=== PATIENT | female | born 1955 | race Caucasian/White ===

== ENCOUNTER → 2016-12-01 | Outpatient (CLI) | payer OTHER ==
--- NOTE | 2016-12-01 15:18 | CONS ---
DATE OF SERVICE: 12/03/2016 A 61-year-old lady who has been evaluated in the Sleep Center for possible obstructive sleep apnea-hypopnea syndrome. HISTORY OF PRESENT ILLNESS/SLEEP-WAKE EVALUATION: Patient usual sleep schedule from around 10 p.m. until 8 - 9 a.m. Sometimes she has problems with falling asleep with a known TV in bedroom. She sleeps with her . She has snoring and wakes up with nocturia 2 to 3 times during the night. In the morning she wakes up tired with some episodes of anxiety, debility, [place] Sleepiness scale is 6 but she may take naps rarely in afternoon. No history of hypnagogic hallucinations, sleep paralysis or cataplexy. PAST MEDICAL HISTORY: Positive for multiple sclerosis, diabetes mellitus, hypothyroidism, hyperlipidemia, allergy, back problems. PAST SURGICAL HISTORY: Tonsillectomy, D&C, left foot surgery, cholecystectomy. SOCIAL HISTORY: Positive for smoking 1 to 1-1/2 packs a day for about 16 years , quit 30 years ago. Alcohol consumption none at the present time. MEDICATIONS: Tysbri, Lyrica, Adderall, Effexor, metformin, Actos, ( ), Lantus, Trulicity, Synthroid, atorvastatin, Aldactone, potassium supplement, Percocet, vitamins, Zyrtec, Claritin, shots for allergy, vitamin D3, Epi-pen. REVIEW OF SYSTEMS: Awakenings from sleep, sometimes tiredness during the day, back pain, numbness in the left foot. FAMILY HISTORY: Hypertension, asthma, diabetes, thyroid problems, restless legs. During physical exam, a 61-year-old lady without distress. BP 139/71, HR 98, RR 16, height 5, 5-1/2, weight 218, BMI 35.7. Neck 15 inches in circumference, temperature 98.1, oxygen saturation at room air 99%. OROPHARYNX: Low position of soft palate, retrognathic 3 mm, possible nasal septum deviation. ABDOMEN: Obese. Loosing sensation on the bottom of left foot. NECK: Supple. No JVD. Thyroid is not palpable. LUNGS: Clear to percussion and to auscultation. Good air exchange. No wheezing or rhonchi. HEART: S1, S2 regular. Bowel sounds are present. No organomegaly appreciated. EXTREMITIES: No clubbing or cyanosis. CUSTOMER PROFESSIONAL: Awake, alert and oriented x3. Cranial nerves 2 to 7 intact. There is no fasciculation or atrophy noted. No focal deficits observed. IMPRESSION: 1. Snoring, multiple awakenings from sleep with nocturia, low position of soft palate. 2. Possible obstructive sleep apnea-hypopnea syndrome. 3. Obesity, body mass index 35.7. 4. Multiple sclerosis. 5. Diabetes mellitus. 6. Hypothyroidism. 7. Hyperlipidemia. 8. Allergy. 9. Back pain. 10. Tonsillectomy. 11. Status post D&C. 12. Status post left foot surgery. 13. Status post cholecystectomy. 14. Possible nasal septum deviation. 15. History of possible depression. PLAN: ( ) Sincerely, Humberto Luo MD PhD, FAASM Diplomate of [place] Board [employer] Medicine, Sleep Medicine Board by [place] Board [employer] Specialities [place] Board of Internal Medicine Stone Derrickman And Rigger of [facility] [place] [facility]
== END | disposition home or self-care (01) ==
LOC: SLEEP 13:17
PROVIDERS: ATTEND Internal Medicine
DX: G35 Multiple sclerosis (principal); R06.83 Snoring; E66.9 Obesity, unspecified; E78.5 Hyperlipidemia, unspecified; E11.9 Type 2 diabetes mellitus without complications; E03.9 Hypothyroidism, unspecified; T78.40XA Allergy, unspecified, initial encounter; M54.9 Dorsalgia, unspecified; Z68.35 Body mass index [BMI] 35.0-35.9, adult
CPT/HCPCS: 99211

== ENCOUNTER → 2017-01-19 | Outpatient (CLI) | payer OTHER ==
--- NOTE | 2017-01-20 08:58 | PN ---
PROGRESS NOTE Date of Service: DATE OF SERVICE: 01/19/17 61-year-old lady has been followed in the sleep center to discuss results of polysomnogram. I discussed results of diagnostic sleep study with patient in details. No significant abnormalities of respiration has been documented. Normal oxygenation during the sleep. Sleep architecture showed absence of delta sleep and absence of REM sleep. EMG showed extremely severe periodic limb movements, 143 times per hour with 4.3 micro arousals per hour and I discussed with the patient the possibility to use a dopamine agonist for treatment of periodic limb movements. [place] sleep scale today is 8. MEDICATIONS: 1. Lyrica. 2. Adderall. 3. Effexor. 4. Metformin. 5. Actos. 6. Farxiga. 7. Lantus. 8. . 9. Synthroid. 10.Atorvastatin. 11.Aldactazide. 12.Percocet. 13.Multivitamin. 14.Zyrtec. 15.Allergy shots. 16.Vitamin D3 supplement. PHYSICAL EXAM: Patient in no distress. Her BP 150/68, HR 96, RR 16, temp 98.1. Oxygen saturation on room air 99%. Oropharynx moderately low position of soft palate. NECK: Supple. No JVD. Thyroid is not palpable. LUNGS: Clear to auscultation and percussion. Good air exchange. No wheezing or rhonchi. HEART: S1, S2 regular. No murmurs, gallops or rubs. ABDOMEN: Obese. Soft, nontender. Bowel sounds are preset. No organomegaly appreciated. EXTREMITIES: Numbness of the left foot, 1+ ankle edema. VETERINARIAN LABORATORY ANIMAL CARE: Awake, alert and oriented times three. Cranial nerves 2 to 7 intact. There is no fasciculation or atrophy noted. No focal deficits observed. IMPRESSION: 1. No significant respiratory abnormalities have been documented during the sleep. 2. Severe periodic limb movements have been documented during the sleep study. 3. History of multiple sclerosis. 4. Diabetes mellitus. 5. Hyperlipidemia. 6. Status post left foot surgery. 7. Hypothyroidism. 8. Allergy. 9. Status post tonsillectomy. 10.Status post cholecystectomy. 11.History of possible depression. PLAN: 1. I will start the patient on treatment with Mirapex with the smallest dose 0.125 mg 1-2 tablets at bedtime. 2. Losing weight. 3. Sleep hygiene with regular time in bed for at least eight hours. 4. No driving if feels any sleepiness. 5. Please check iron profile including ferritin level. Low level of iron may increase risk for periodic limb movements. Thank you very much for allowing me to participate in management of your patient. Sincerely, Humberto Luo MD, PhD, FAASM Diplomat of [place] Board [employer] Medicine. Sleep Medicine Board by [place] [employer] Special[employer] [place] [employer] Medicine Sheet Metal Journeyman of [facility] [place] MMODL / IJN: [id number] /
== END | disposition home or self-care (01) ==
LOC: SLEEP 13:04
PROVIDERS: ATTEND Internal Medicine
DX: G47.61 Periodic limb movement disorder (principal); E11.9 Type 2 diabetes mellitus without complications; E78.5 Hyperlipidemia, unspecified; E03.9 Hypothyroidism, unspecified; T78.40XA Allergy, unspecified, initial encounter; Z98.890 Other specified postprocedural states; Z90.49 Acquired absence of other specified parts of digestive tract; Z90.89 Acquired absence of other organs; Z87.39 Personal history of other diseases of the musculoskeletal system and connective tissue; Z79.899 Other long term (current) drug therapy; Z79.4 Long term (current) use of insulin; Z79.891 Long term (current) use of opiate analgesic

== ENCOUNTER → 2017-06-13 | Outpatient (CLI) | payer OTHER ==
--- NOTE | 2017-06-13 14:18 | US ---
EXAMINATION TYPE: US transvaginal DATE OF EXAM: 06/13/2017 COMPARISON: US CLINICAL HISTORY: Timothy ovarian cyst, N83.201,. TECHNIQUE: Transvaginal (TV) Date of LMP: postmenopausal EXAM MEASUREMENTS: Uterus: 4.0 x 2.2 x 3.7 cm Endometrial Stripe: 0.5 cm Right Ovary: 1.9 x 1.2 x 1.0 cm Left Ovary: 1.4 x 1.1 x 1.2 cm 1. Uterus: Anteverted wnl 2. Endometrium: wnl 3. Right Ovary: wnl 4. Left Ovary: wnl 5. Bilateral Adnexa: wnl 6. Posterior cul-de-sac: no free fluid IMPRESSION: No significant abnormality seen.
== END | disposition home or self-care (01) ==
LOC: RADUSWWP 13:42
PROVIDERS: ATTEND Obstetrics & Gynecology
DX: N83.201 Unspecified ovarian cyst, right side (principal); N83.202 Unspecified ovarian cyst, left side
CPT/HCPCS: 36415; 76830; 86304

== ENCOUNTER → 2017-07-03 | Outpatient (CLI) | payer OTHER ==
--- NOTE | 2017-07-03 18:08 | BD ---
EXAMINATION TYPE: MG DEXA axial skeleton. DATE OF EXAM: 07/03/2017 COMPARISON: 04/03/2014 CLINICAL HISTORY: 62-year-old female screening for osteoporosis Height: 65.5 IN Weight: 222 LBS FRAX RISK QUESTIONS: Alcohol (3 or more units per day): NO Family History (Parent hip fracture): NO Glucocorticoids (More than 3mos): NO (Ex: prednisone, prednisolone, methylprednisolone, dexamethasone, and hydrocortisone). History of Fracture in Adulthood: NO Secondary Osteoporosis: 1. Type 1 Diabetes: NO 2. Hyperthyroidism: NO 3. Menopause before 45: NO 4. Malnutrition: NO 5. Chronic liver disease: NO Rheumatoid Arthritis: NO Current Tobacco Use: NO RISK FACTORS HISTORY OF: Active: YES Postmenopausal woman: AGE 45 MEDICATIONS: Thyroid Medications: YES Which medication: Synthroid How Lon+ YEARS Additional Medications: VIT D, SYNTHROID,TYSABRI (INTERPHOREN), LYRICA, ADDERAL ER, EFFEXOR XR, METFO RMIN, ACTOS, FARXIGA, LANTUS, TRULICITY, ATORVASTATIN, ALDACTAZIDE, POTASSIUM CHLORIDE, MIRAPEX, PERC OCET, FISH OIL, MULTI VIT, ZYRTEC, CLARITIN, EXAM MEASUREMENTS: Bone mineral densitometry was performed using the [employer] System. Bone mineral density as measured about the Lumbar spine is: ----- L1-L4(G/cm2): 1.258 T Score Values are as follows: ----- L2: 0.5 ----- L3: 1.3 ----- L4: 0.2 ----- L1-L4: 0.7 Bone mineral density has: Decreased -8.1% since study of: 04/03/2014 Bone mineral density about the R hip (g/cm2): 1.128 Bone mineral density about the L hip (g/cm2): 1.043 T Score values are as follows: -----R Neck: 0.6 -----L Neck: 0.0 -----R Total: 0.3 -----L Total: 0.6 Bone mineral density has: Decreased -6.3% since study of: 04/03/2014 IMPRESSION: Normal (Values between +1 and -1 indicate normal bone mass). Consider repeating this study in 5 year s or sooner if there is some new clinical indication. NOTE: T-SCORE=SD OF THE YOUNG ADULT MEAN.
--- NOTE | 2017-07-04 11:39 | MM ---
Reason for exam: screening (asymptomatic). Last mammogram was performed 1 year and 3 months ago. History: Patient is postmenopausal and had first child at age 35. Physical Findings: A clinical breast exam by your physician is recommended on an annual basis and results should be correlated with mammographic findings. MG Screening Mammo w CAD Bilateral CC and MLO view(s) were taken. Prior study comparison: April 07, 2016, bilateral MG screening mammo w CAD. March 24, 2015, bilateral MG screening mammo w CAD. There are scattered fibroglandular densities. Stable benign calcifications. There is no discrete abnormality. No significant changes when compared with prior studies. ASSESSMENT: Benign, BI-RAD 2 RECOMMENDATION: Routine screening mammogram of both breasts in 1 year.
== END | disposition home or self-care (01) ==
LOC: RADMAMWWP 13:50
PROVIDERS: ATTEND Obstetrics & Gynecology
DX: Z12.31 Encounter for screening mammogram for malignant neoplasm of breast (principal); Z13.820 Encounter for screening for osteoporosis
CPT/HCPCS: 77067; 77080

== ENCOUNTER → 2017-07-20 | Outpatient (CLI) | payer OTHER ==
--- NOTE | 2017-07-20 14:58 | SFUN ---
SLEEP STUDY FOLLOW UP NOTE DATE OF SERVICE: 07/20/2017 A 62-year-old lady who has been followed in the Sleep Center for treatment of CVA periodic limb movements. The patient is on treatment for periodic limb movements since December of 2016. At that time, she was started on treatment with Mirapex and presently she is taking 2 tablets of Mirapex 0.125 mg at bedtime. With this treatment, patient feels improvements in terms of movements at night and she sleeps better although she still sometimes wakes up from sleep. She underwent instillation of her stem cells to the back in the level of L3-L4, and that also happened in January 02, 2017 and presently she feels improvements with her pain in the back after that procedure. She still continued to have numbness in her left foot. [place] Sleepiness scale today is 8. MEDICATIONS: Tysbri, Lyrica, Adderall, Effexor, metformin, , Farxiga, Lantus, Synthroid, Atorvastatin, , potassium supplement, Mirapex, Trulicity, Percocet, Zyrtec, Claritin, vitamin D3. PHYSICAL EXAM: Patient in no distress. BP 143/70, HR 94, RR 16, height 5, 5, weight 224, BMI 37.2, temperature 97.8, oxygen saturation at room air 100%. OROPHARYNX: Moderately low to normal position of soft palate. ABDOMEN: Slightly obese. Some changes of sensation in her left foot. Patient has some difficulties to walk secondary to back pain. Neck Supple, no JVD. Thyroid is not palpable. LUNGS Clear to percussion and to auscultation. Good air exchange. No wheezing or rhonchi. HEART S1, S2 regular. No murmurs, gallops, or rubs. PATENT DRAFTER Awake, alert, and oriented X3. Cranial nerves 2 to 7 intact. There is no fasciculation or atrophy. noted. No focal deficits observed. IMPRESSION: 1. Severe periodic limb movements, clinically improved on treatment with Mirapex with the dose of 2.5 mg at bedtime. 2. History of multiple sclerosis. 3. Diabetes mellitus. 4. Back problems, status post stem cells insertion to the disc area on the level L3- L4, feels some improvements. 5. Status post left foot surgery. 6. Hypothyroidism. 7. Allergy. 8. Status post tonsillectomy. 9. Status post cholecystectomy. 10.History of possible depression. PLAN: 1. Continue treatment with Mirapex at bedtime with the same dose. 2. Losing weight. 3. Sleep hygiene with regular time in bed for at least 8 hours. 4. No driving if feeling sleepiness. 5. Prescription to continue treatment with Mirapex. Thank you very much for allowing me to participate in the management of your patient. Sincerely, Humberto Luo MD, PhD, FAASM Diplomat of [place] Board [employer] Medical Specialties [place] Board of Internal Medicine Product Support Consultant of [facility] [place] MMODL / IJN: [id number] /
== END | disposition home or self-care (01) ==
LOC: SLEEP 13:15
PROVIDERS: ATTEND Internal Medicine
DX: G47.61 Periodic limb movement disorder (principal); E11.9 Type 2 diabetes mellitus without complications; E03.9 Hypothyroidism, unspecified; M79.89 Other specified soft tissue disorders; T78.40XA Allergy, unspecified, initial encounter; Z90.89 Acquired absence of other organs; Z90.49 Acquired absence of other specified parts of digestive tract; Z86.69 Personal history of other diseases of the nervous system and sense organs; Z94.84 Stem cells transplant status; Z98.890 Other specified postprocedural states; Z79.899 Other long term (current) drug therapy; Z79.84 Long term (current) use of oral hypoglycemic drugs; Z79.891 Long term (current) use of opiate analgesic

== ENCOUNTER → 2017-09-14 | Outpatient (CLI) | payer OTHER ==
[2017-09-14 11:06] LABS: ALT 51 U/L (9-52); AST 39 U/L (14-36); Albumin 4.3 g/dL (3.5-5.0); Alkaline Phosphatase 102 U/L (38-126); Anion Gap 13 mmol/L; Blood Urea Nitrogen 17 mg/dL (7-17); Calcium 9.5 mg/dL (8.4-10.2); Carbon Dioxide 31 mmol/L (22-30); Chloride 101 mmol/L (98-107); Cholesterol 103 mg/dL (<200); Glucose 195 mg/dL (74-99); HDL Cholesterol 42 mg/dL (40-60); LDL Cholesterol,Calculated 14 mg/dL (0-99); Sodium 145 mmol/L (137-145); Total Bilirubin 1.1 mg/dL (0.2-1.3); Total Protein 6.5 g/dL (6.3-8.2); Triglycerides 234 mg/dL (<150)
[2017-09-14 18:51] LABS: Hemoglobin A1C 9.3 % (4.0-6.0)
== END | disposition home or self-care (01) ==
LOC: LABWHC1 10:28
PROVIDERS: ATTEND Internal Medicine
DX: E11.9 Type 2 diabetes mellitus without complications (principal); E78.5 Hyperlipidemia, unspecified; E55.9 Vitamin D deficiency, unspecified
CPT/HCPCS: 36415; 80053; 80061; 82043; 82306; 82570; 83036

== ENCOUNTER → 2018-02-15 | Outpatient (CLI) | payer OTHER ==
--- NOTE | 2018-02-15 16:28 | PN ---
PROGRESS NOTE DATE OF SERVICE: 02/15/2018 62-year-old lady has been followed in Sleep Center for treatment of severe periodic limb movements and awakenings from the night. Patient had a polysomnogram done about 1 year ago, which showed no any abnormal respiratory events and severe periodic limb movements have been documented. The sleep efficiency was decreased to 59.1%. No REM sleep was documented at that time, which actually also could be the reason for underestimation of obstructive sleep apnea- hypopnea syndrome. Presently, patient is on treatment with Mirapex 0.125 mg 2 tablets at bedtime. Sometimes she still has her leg movements according to her , but that is not very clear information, but the patient continued to wake up from sleep several times. Usually she goes to bed around 10 and wakes up around midnight, 2, 4 and 6 am. In the morning finally, she gets out of bed around 8 or 10 and some days she may stay until around noon. Other medications are the same, and include Lyrica, Adderall XR, Effexor XR, metformin, , Farxiga, Lantos, Trulicity, Synthroid, atorvastatin, Aldactazide, potassium supplement, Percocet, Zyrtec, Claritin, allergy shots, vitamin D3 supplements. PHYSICAL EXAM: Patient in no distress, BP 135/65, HR 89, RR 16, height 5 feet 5 and one half inches and weight 218.6, body mass index 35.7, temperature 98.6, oxygen saturation on room air 99%. Oropharynx moderately low position of soft palate. Abdomen slightly obese. Neck: Supple, no JVD. Thyroid is not palpable. LUNGS Clear to percussion and to auscultation. Good air exchange. No wheezing or rhonchi. HEART: S1, S2 regular. No murmurs, gallops, or rubs. ABDOMEN: Obese. Soft and nontender. Bowel sounds are present. No organomegaly appreciated. EXTREMITIES No clubbing or cyanosis. BRAND ENGINEER Awake, alert, and oriented X3. Cranial nerves 2 to 7 intact. There is no fasciculation or atrophy. noted. No focal deficits observed. IMPRESSION: 1. Severe periodic limb movements, 143 per hour with 4.3 micromoles per hour by results of sleep study 1 year ago. 2. Multiple awakenings from sleep related to leg movements, also possibly to insomnia. 3. Diabetes mellitus. 4. Back problems. 5. History of multiple sclerosis. 6. Hypothyroidism. 7. Allergy. 8. Status post tonsillectomy. PLAN: 1. I discussed with the patient psychological techniques for treatment of possible insomnia including stimulus control, paradoxical intention, sleep restriction therapy. 2. The patient will decrease the amount of time in bed presently from 11:00 p.m. to 7 am. 3. She will continue to use her dopamine agonists for periodic limb movements. If necessary, dose will be increased. 4. Precautions related to driving. No driving if feeling any sleepiness. 5. Preferable position during the sleep on the side. Thank you very much for allowing me to participate in the management of your patient. MMODL / IJN: [id number] /
== END | disposition home or self-care (01) ==
LOC: SLEEP 14:14
PROVIDERS: ATTEND Internal Medicine
DX: G47.61 Periodic limb movement disorder (principal); E11.9 Type 2 diabetes mellitus without complications; G35 Multiple sclerosis; E03.9 Hypothyroidism, unspecified; T78.40XA Allergy, unspecified, initial encounter; M53.9 Dorsopathy, unspecified; E66.9 Obesity, unspecified; Z68.35 Body mass index [BMI] 35.0-35.9, adult; Z79.899 Other long term (current) drug therapy; Z79.84 Long term (current) use of oral hypoglycemic drugs; Z79.4 Long term (current) use of insulin; Z79.891 Long term (current) use of opiate analgesic; Z90.89 Acquired absence of other organs

== ENCOUNTER → 2018-07-20 | Outpatient (CLI) | payer OTHER | END | disposition home or self-care (01) | LOC: LABWHC1 12:04 | PROVIDERS: ATTEND Obstetrics & Gynecology | DX: N83.209 Unspecified ovarian cyst, unspecified side (principal) | CPT/HCPCS: 36415; 86304 ==

== ENCOUNTER → 2018-07-20 | Outpatient (CLI) | payer OTHER ==
--- NOTE | 2018-07-23 09:31 | MM ---
Reason for exam: screening (asymptomatic). Last mammogram was performed 1 year and 1 month ago. History: Patient is postmenopausal and had first child at age 35. Physical Findings: A clinical breast exam by your physician is recommended on an annual basis and results should be correlated with mammographic findings. MG Screening Mammo w CAD Bilateral CC and MLO view(s) were taken. Prior study comparison: July 03, 2017, bilateral MG screening mammo w CAD. April 07, 2016, bilateral MG screening mammo w CAD. There are scattered fibroglandular densities. Finding: There are typically benign round, diffuse/scattered calcifications in the right breast. No suspicious abnormality. No significant changes in finding since July 03, 2017 and April 07, 2016. ASSESSMENT: Benign, BI-RAD 2 RECOMMENDATION: Routine screening mammogram of both breasts in 1 year.
== END ==
LOC: RADMAMWWP 11:34
PROVIDERS: ATTEND Obstetrics & Gynecology
DX: Z12.31 Encounter for screening mammogram for malignant neoplasm of breast (principal)
CPT/HCPCS: 77067

== ENCOUNTER → 2018-08-10 | Outpatient (CLI) | payer OTHER ==
--- NOTE | 2018-08-10 14:36 | US ---
EXAMINATION TYPE: US transvaginal DATE OF EXAM: 08/10/2018 COMPARISON: US June 13, 2017 CLINICAL HISTORY: N83.0 Ovarian Cyst. Sister had ovarian CA TECHNIQUE: Transvaginal (TV). Transabdominal sonographic images of the pelvis were acquired. Date of LMP: age 45 EXAM MEASUREMENTS: Uterus: 3.7 x 2.9 x 2.1 cm Endometrial Stripe: 0.4 cm Right Ovary: 1.5 x 0.6 x 0.6 cm Left Ovary: 2.3 x 1.5 x 1.0 cm 1. Uterus: Anteverted 2. Endometrium: small cyst in upper endometrium = 0.4 x 0.3 x 0.3cm; endometrial thickness is wnl po st menopause 3. Right Ovary: wnl 4. Left Ovary: wnl 5. Bilateral Adnexa: wnl 6. Posterior cul-de-sac: wnl Small 3 mm thin-walled myometrial cyst felt present towards beginning of study. Both ovaries are seen and normal in size somewhat poorly visualized on images saved without concerning ovarian or adnexal mass. IMPRESSION: No suspicious ovarian or adnexal mass identified on images saved.
== END | disposition home or self-care (01) ==
LOC: RADUSWWP 13:39
PROVIDERS: ATTEND Obstetrics & Gynecology
DX: N83.209 Unspecified ovarian cyst, unspecified side (principal); Z80.41 Family history of malignant neoplasm of ovary
CPT/HCPCS: 76830

== ENCOUNTER → 2018-11-14 | Outpatient (CLI) | payer OTHER ==
--- NOTE | 2018-11-14 17:05 | PN ---
PROGRESS NOTE DATE OF SERVICE: 11/14/2018 This 63-year-old lady has been followed in Sleep Center for treatment of periodic limb movements in severe range. Patient continues to use Mirapex 0.125 mg 2 tablets at bedtime, and with this regimen she sleeps better and feels better during the day. If she does not take the medication, she has a significant amount of leg movements and she feels worse during the day. [place] Sleepiness Scale today is 2, which is normal. Medications at the present time are: 1. Tysbri. 2. Lyrica. 3. Adderall. 4. Effexor. 5. Metformin. 6. . 7. . 8. Lantus. 9. Trulicity. 10.Synthroid. 11.Atorvastatin. 12.Aldactazide. 13.Potassium supplement. 14.Mirapex. 15.Percocet. 16.Claritin. 17.Zyrtec. 18.Oxybutynin. 19.Vitamin D3 supplement. PHYSICAL EXAMINATION: GENERAL: A pleasant patient in no distress. VITAL SIGNS: BP is 136/75, HR about 96, RR 16, height 5 feet 5 inches, weight 209 pounds. Body mass index 34.7. Temperature 98.4, oxygen saturation at room air 97%. HEENT: PERRLA, EOMI. Evaluation of oropharynx showed tongue protrudes midline. Moderately low position of soft palate. NECK: Supple. No JVD. Thyroid is not palpable. LUNGS: Clear to percussion and to auscultation. Good air exchange. No wheezing or rhonchi. HEART: S1, S2 regular. No murmurs, gallops or rubs. ABDOMEN: Slightly obese. EXTREMITIES: No clubbing or cyanosis. FRUIT FARMER: Awake, alert, and oriented X3. Cranial nerves 2 to 7 intact. There is no fasciculation or atrophy. noted. No focal deficits observed. IMPRESSION: 1. Extremely severe periodic limb movements at 143 per hour with 4.3 microarousals per hour per results of previous sleep study. The patient is on treatment with Mirapex 0.125 mg 2 tablets at bedtime. With this regimen, no significant problems with periodic limb movements. 2. Diabetes mellitus. 3. History of back problems. 4. History of multiple sclerosis. 5. Hypothyroidism. 6. Allergies. 7. Status post tonsillectomy. PLAN: 1. Patient will continue to take Mirapex 0.125 mg 2 tablets at bedtime. 2. Sleep hygiene with regular time in bed for at least 8 hours. 3. Precautions related to driving. No driving if feeling any sleepiness. 4. Watching and losing weight. Thank you very much for allowing me to participate in the management of your patient. Sincerely, Humberto Luo MD, PhD, FAASM Diplomat of [place] Board [employer] Medical Specialties [place] Board of Internal Medicine Low Heel Builder of [facility] [place] MMODL / IJN: [id number] /
== END ==
LOC: SLEEP 14:57
PROVIDERS: ATTEND Internal Medicine
DX: G47.61 Periodic limb movement disorder (principal); E11.9 Type 2 diabetes mellitus without complications; G35 Multiple sclerosis; E03.9 Hypothyroidism, unspecified; R29.898 Other symptoms and signs involving the musculoskeletal system; Z88.8 Allergy status to other drugs, medicaments and biological substances; Z90.89 Acquired absence of other organs; Z79.899 Other long term (current) drug therapy; Z79.4 Long term (current) use of insulin

== ENCOUNTER → 2019-10-21 | Outpatient (CLI) | payer OTHER ==
--- NOTE | 2019-10-21 12:12 | US ---
EXAMINATION TYPE: US transvaginal DATE OF EXAM: 10/21/2019 COMPARISON: 08/10/2018 CLINICAL HISTORY: 64-year-old female N83.0 Ovarian cyst. TECHNIQUE: Transvaginal (TV). Findings: EXAM MEASUREMENTS: Uterus: 3.6 x 1.9 x 3.0 cm Endometrial Stripe: .3 cm Left Ovary: Obscured by bowel gas. Right Ovary: 1.5 x .7 x 1.1 cm 1. Uterus: Anteverted wnl 2. Endometrium: wnl 3. Left Ovary: Obscured by bowel gas. 4. Right Ovary: Hypoechoic cystic area measuring .6 x .5 x .7 cm. 5. Bilateral Adnexa: wnl 6. Posterior cul-de-sac: wnl IMPRESSION: Small 7 mm hypoechoic lesion within the right ovary, probable tiny debris filled or hemorrhagic cyst. A 6-8 week follow-up ultrasound can be considered to reassess. Not clearly seen on 08/10/2018. The le ft ovary is obscured and not assessed.
== END | disposition home or self-care (01) ==
LOC: RADUSWWP 11:14
PROVIDERS: ATTEND Obstetrics & Gynecology
DX: N83.8 Other noninflammatory disorders of ovary, fallopian tube and broad ligament (principal)
CPT/HCPCS: 36415; 76830; 86304

== ENCOUNTER → 2019-10-30 | Outpatient (CLI) | payer OTHER ==
--- NOTE | 2019-10-31 09:10 | MM ---
Reason for exam: screening (asymptomatic). Last mammogram was performed 1 year and 3 months ago. History: Patient is postmenopausal and had first child at age 35. Physical Findings: A clinical breast exam by your physician is recommended on an annual basis and results should be correlated with mammographic findings. MG 3D Screening Mammo W/Cad Bilateral CC, MLO, and XCCL view(s) were taken. Prior study comparison: July 20, 2018, bilateral MG screening mammo w CAD. July 03, 2017, bilateral MG screening mammo w CAD. There are scattered fibroglandular densities. Finding: There are typically benign diffuse/scattered calcifications in both breasts. No significant changes in finding since July 20, 2018 and July 03, 2017. ASSESSMENT: Benign, BI-RAD 2 RECOMMENDATION: Routine screening mammogram of both breasts in 1 year.
== END | disposition home or self-care (01) ==
LOC: RADMAMWWP 13:52
PROVIDERS: ATTEND Obstetrics & Gynecology
DX: Z12.31 Encounter for screening mammogram for malignant neoplasm of breast (principal)
CPT/HCPCS: 77063; 77067

== ENCOUNTER → 2020-12-25 | Outpatient (CLI) | payer MEDICARE ==
--- NOTE | 2020-12-26 05:39 | MR ---
EXAMINATION TYPE: MR lumbar spine wo con DATE OF EXAM: 12/25/2020 COMPARISON: None HISTORY: Low back pain Multiplanar multiecho imaging of the lumbar spine without contrast. Vertebra have fairly normal alignment. There is a very minimal anterior subluxation at L3-4 L4-5. The facet joints appear intact. The neural foramina are fairly well-maintained. There is no compression fracture. There is no lumbar paraspinal mass. I see no spinal stenosis. There is some impingement on the thecal sac on the right side at L2-3 that could be a small synovial cyst. Disc spaces are fairly normal. I see no focal bone destruction. IMPRESSION: Minimal degenerative subluxation at L2-3 and L3-4. No compression fracture. Possible small synovial c yst on the right facet joint of L2-3. No spinal stenosis. No lumbar disc herniation.
== END | disposition home or self-care (01) ==
LOC: RADMRIMAIN 09:13
PROVIDERS: ATTEND Orthopaedic Surgery
DX: M51.36 Other intervertebral disc degeneration, lumbar region (principal)
CPT/HCPCS: 72148

== ENCOUNTER → 2020-12-31 | Outpatient (CLI) | payer MEDICARE ==
--- NOTE | 2020-12-31 17:21 | XR ---
EXAMINATION TYPE: XR knee limited LT DATE OF EXAM: 12/31/2020 COMPARISON: NONE HISTORY: 65-year-old female M25.562 TECHNIQUE: 2 views FINDINGS: Tricompartmental degenerative spurring. Moderate knee joint effusion. No acute fracture, subluxation, or dislocation. IMPRESSION: 1. Moderate knee joint effusion. MRI can be considered if concern for internal derangement. No acute osseous abnormality seen. 2. Tricompartmental degenerative spurring. A weight-bearing view can better assess the degree of cart ilage and joint space narrowing.
== END | disposition home or self-care (01) ==
LOC: RADXRMAIN 15:42
PROVIDERS: ATTEND Family Medicine
DX: M17.12 Unilateral primary osteoarthritis, left knee (principal); M25.462 Effusion, left knee

== ENCOUNTER 2021-02-19 21:47 | Emergency (ER) | payer MEDICARE ==
[2021-02-19] MEDS ORDERED: SODIUM CHLORIDE 0.9% 1,000 ML IV STA (22:19)
[2021-02-19] MEDS ORDERED: IPRATROPIUM-ALBUTEROL 3 ML NEB INHALATION STA (22:20)
[2021-02-19] MEDS: DEXAMETHASONE SOD PHOSPHATE 10 MG/ML 1 ML VIAL IV STA (22:45)
[2021-02-19 22:48] LABS: Basophils # (A) 0.1 k/uL (0-0.2); Basophils % (A) 1 %; Eosinophils # (A) 0.2 k/uL (0-0.7); Eosinophils % (A) 2 %; HCT 38.8 % (34.0-46.0); HGB 13.6 gm/dL (11.4-16.0); Lymphocytes # (A) 2.7 k/uL (1.0-4.8); Lymphocytes % (A) 27 %; MCH 29.8 pg (25.0-35.0); MCHC 35.2 g/dL (31.0-37.0); MCV 84.9 fL (80.0-100.0); Mean Platelet Volume 7.6; Monocytes # (A) 0.4 k/uL (0-1.0); Monocytes % (A) 4 %; Neutrophils # (A) 6.6 k/uL (1.3-7.7); Neutrophils % (A) 65 %; Platelet Count 208 k/uL (150-450); Poikilocytosis Slight; RBC 4.57 m/uL (3.80-5.40); WBC 10.1 k/uL (3.8-10.6)
[2021-02-19 23:00] LABS: INR 0.9 (<1.2); Partial Thromboplastin Time 24.6 sec (22.0-30.0)
[2021-02-19 23:07] LABS: ALT 29 U/L (4-34); AST 48 U/L (14-36); African American GFR (CKD) >90 (>60 ml/min/1.73 sqM); Alkaline Phosphatase 84 U/L (38-126); Anion Gap 8 mmol/L; Blood Urea Nitrogen 22 mg/dL (7-17); Calcium 8.9 mg/dL (8.4-10.2); Carbon Dioxide 29 mmol/L (22-30); Chloride 101 mmol/L (98-107); Creatine Kinase 455 U/L (30-135); Glucose 126 mg/dL (74-99); Magnesium 1.8 mg/dL (1.6-2.3); Non-African American GFR(CKD) 86 (>60 ml/min/1.73 sqM); Phosphorus 3.4 mg/dL (2.5-4.5); Potassium 3.6 mmol/L (3.5-5.1); Sodium 138 mmol/L (137-145); Total Bilirubin 0.7 mg/dL (0.2-1.3); Total Protein 6.3 g/dL (6.3-8.2)
--- NOTE | 2021-02-19 23:09 | ED ---
SOB HPI - General Chief Complaint: Shortness of Breath Stated Complaint: Post Op SOB Time Seen by Provider: 02/19/21 22:15 Source: patient, RN notes reviewed, old records reviewed Mode of arrival: ambulatory Limitations: no limitations - History of Present Illness Initial Comments: This is a 65-year-old female to the emergency or today. Patient does have some mild medical history but recently had surgery. Patient had surgery today on her left knee where she was intubated. Patient was complaining of tonight of sore throat neck pain and some wheezing ever since being sent home from the hospital. Patient has no other complaints no fevers. No abdominal pain. MD Complaint: cough, anxiety -: hour(s) Severity: moderate Severity scale (1-10): 4 Quality: dull, throbbing Consistency: constant Improves With: nothing Worsens With: nothing Known History Of: other (none) Context: other (Recent surgery) Associated Symptoms: denies other symptoms Treatments Prior to Arrival: none - Related Data Home Medications Medication Instructions Recorded Confirmed Levothyroxine Sodium [Synthroid] 75 mcg PO HS 05/30/14 02/20/21 Multivitamins, Thera [Multivitamin 1 tab PO DAILY 05/30/14 02/20/21 (formulary)] [place]-3 Fatty Acids/Fish Oil [Fish 1 cap PO DAILY 05/30/14 02/20/21 Oil 1,000 mg Softgel] Pregabalin [Lyrica] 100 mg PO HS 05/30/14 02/20/21 Venlafaxine HCl ER [Effexor XR] 150 mg PO DAILY 05/30/14 02/20/21 metFORMIN HCL [metFORMIN HCL ER] 1,000 mg PO BID 05/30/14 02/20/21 Tysbri 1 dose IVPB Q30D 04/23/15 02/20/21 Cholecalciferol (Vitamin D3) 10,000 unit PO DAILY 04/06/17 02/20/21 [Vitamin D3] Dextroamphetamine/Amphetamine 25 mg PO DAILY 04/06/17 02/20/21 [Adderall Xr] Dulaglutide [Trulicity] 1.5 mg SQ Q14D 04/06/17 02/20/21 EPINEPHrine (Auto Inject) [Epipen] 0.3 mg IM ONCE PRN 04/06/17 02/20/21 Pramipexole [Mirapex] 0.125 mg PO HS 04/06/17 02/20/21 Pregabalin [Lyrica] 50 mg PO DAILY 04/06/17 02/20/21 HYDROcodone/APAP 10-325MG [[place] 1 tab PO QID PRN 02/19/21 02/20/21 10-325] Insulin Aspart [NovoLOG Flexpen] 5 units SQ ACHS 02/19/21 02/20/21 Insulin Glargine,Hum.rec.anlog 60 units SQ DAILY 02/19/21 02/20/21 [Toujeo Solostar] Loratadine [Claritin] 10 mg PO HS 02/19/21 02/20/21 Meloxicam [Mobic] 7.5 mg PO DAILY 02/19/21 02/20/21 Pioglitazone [Actos] 30 mg PO DAILY 02/19/21 02/20/21 Tolterodine ER [Detrol LA] 4 mg PO HS 02/19/21 02/20/21 Zinc 50 mg PO DAILY 02/19/21 02/20/21 Previous Rx's Medication Instructions Recorded Atorvastatin Calcium [Lipitor] 20 mg PO HS #30 tab 05/31/14 Allergies Allergy/AdvReac Type Severity Reaction Status Date / Time lisinopril Allergy Rash/Hives Verified 02/19/21 23:50 adhesive tape AdvReac TEARS SKIN Verified 02/19/21 23:50 erythromycin base AdvReac Nausea & Verified 02/19/21 23:50 Vomiting Review of Systems ROS Statement: Those systems with pertinent positive or pertinent negative responses have been documented in the HPI. ROS Other: All systems not noted in ROS Statement are negative. Past Medical History Past Medical History: Diabetes Mellitus, Hypertension, Musculoskeletal Disorder, Thyroid Disorder Additional Past Medical History / Comment(s): MS, family history CAD, SEASONAL ALLERGIES History of Any Multi-Drug Resistant Organisms: None Reported Past Surgical History: Cholecystectomy, Tonsillectomy Additional Past Surgical History / Comment(s): D&C, COLONOSCOPY, left knee surgery Past Anesthesia/Blood Transfusion Reactions: No Reported Reaction Past Psychological History: Anxiety Smoking Status: Current every day smoker Past Alcohol Use History: None Reported Past Drug Use History: None Reported - Past Family History Sister(s) Family Medical History: Cancer Additional Family Medical History / Comment(s): Ovarian cancer General Exam - General Exam Comments Initial Comments: No stridor noted General appearance: alert, in no apparent distress Head exam: Present: atraumatic, normocephalic, normal inspection Eye exam: Present: normal appearance, PERRL, EOMI. Absent: scleral icterus, conjunctival injection, periorbital swelling ENT exam: Present: normal exam, mucous membranes moist Neck exam: Present: normal inspection. Absent: tenderness, meningismus, lymphadenopathy Respiratory exam: Present: normal lung sounds bilaterally. Absent: respiratory distress, wheezes, rales, rhonchi, stridor Cardiovascular Exam: Present: regular rate, normal rhythm, normal heart sounds. Absent: systolic murmur, diastolic murmur, rubs, gallop, clicks GI/Abdominal exam: Present: soft, normal bowel sounds. Absent: distended, tenderness, guarding, rebound, rigid Extremities exam: Present: normal inspection, full ROM, normal capillary refill. Absent: tenderness, pedal edema, joint swelling, calf tenderness Back exam: Present: normal inspection Neurological exam: Present: alert, oriented X3, CN II-XII intact Psychiatric exam: Present: normal affect, normal mood Skin exam: Present: warm, dry, intact, normal color. Absent: rash Course Vital Signs 02/19/21 02/19/21 02/19/21 21:57 23:28 23:35 Temperature 98.2 F Pulse Rate 95 94 96 Respiratory 19 Rate Blood Pressure 137/68 O2 Sat by Pulse 96 Oximetry 02/20/21 00:37 Temperature 98.6 F Pulse Rate 96 Respiratory 16 Rate Blood Pressure 140/64 O2 Sat by Pulse 98 Oximetry - Reevaluation(s) Reevaluation #1: Medical record is reviewed Patient symptoms are improved Patient's informed of results and questions are answered Patient is in no acute distress Medical Decision Making - Medical Decision Making 65 female who presents is a postop patient, postoperative intubation. Coming in for some shortness of breath and wheezing. States a mild difficulty talking. Better with steroids and fluids anti-inflammatories. Patient feels comfortable currently and can be discharged home - Lab Data Result diagrams: 02/19/21 22:40 02/19/21 22:40 Lab Results 02/19/21 02/19/21 02/19/21 Range/Units 22:40 22:40 22:40 WBC 10.1 (3.8-10.6) k/uL RBC 4.57 (3.80-5.40) m/uL Hgb 13.6 (11.4-16.0) gm/dL Hct 38.8 (34.0-46.0) % MCV 84.9 (80.0-100.0) fL MCH 29.8 (25.0-35.0) pg MCHC 35.2 (31.0-37.0) g/dL RDW 15.0 (11.5-15.5) % Plt Count 208 (150-450) k/uL MPV 7.6 Neutrophils % 65 % Lymphocytes % 27 % Monocytes % 4 % Eosinophils % 2 % Basophils % 1 % Neutrophils # 6.6 (1.3-7.7) k/uL Lymphocytes # 2.7 (1.0-4.8) k/uL Monocytes # 0.4 (0-1.0) k/uL Eosinophils # 0.2 (0-0.7) k/uL Basophils # 0.1 (0-0.2) k/uL Poikilocytosis Slight PT 10.0 (9.0-12.0) sec INR 0.9 (<1.2) APTT 24.6 (22.0-30.0) sec Sodium 138 (137-145) mmol/L Potassium 3.6 (3.5-5.1) mmol/L Chloride 101 (98-107) mmol/L Carbon Dioxide 29 (22-30) mmol/L Anion Gap 8 mmol/L BUN 22 H (7-17) mg/dL Creatinine 0.73 (0.52-1.04) mg/dL Est GFR (CKD-EPI)AfAm >90 (>60 ml/min/1.73 sqM) Est GFR (CKD-EPI)NonAf 86 (>60 ml/min/1.73 sqM) Glucose 126 H (74-99) mg/dL Plasma Lactic Acid Timothy (0.7-2.0) mmol/L Calcium 8.9 (8.4-10.2) mg/dL Phosphorus 3.4 (2.5-4.5) mg/dL Magnesium 1.8 (1.6-2.3) mg/dL Total Bilirubin 0.7 (0.2-1.3) mg/dL AST 48 H (14-36) U/L ALT 29 (4-34) U/L Alkaline Phosphatase 84 (38-126) U/L Creatine Kinase 455 H (30-135) U/L Troponin I (0.000-0.034) ng/mL NT-Pro-B Natriuret Pep pg/mL Total Protein 6.3 (6.3-8.2) g/dL Albumin 4.0 (3.5-5.0) g/dL TSH 1.150 (0.465-4.680) mIU/L 02/19/21 02/19/21 02/19/21 Range/Units 22:40 22:40 22:40 WBC (3.8-10.6) k/uL RBC (3.80-5.40) m/uL Hgb (11.4-16.0) gm/dL Hct (34.0-46.0) % MCV (80.0-100.0) fL MCH (25.0-35.0) pg MCHC (31.0-37.0) g/dL RDW (11.5-15.5) % Plt Count (150-450) k/uL MPV Neutrophils % % Lymphocytes % % Monocytes % % Eosinophils % % Basophils % % Neutrophils # (1.3-7.7) k/uL Lymphocytes # (1.0-4.8) k/uL Monocytes # (0-1.0) k/uL Eosinophils # (0-0.7) k/uL Basophils # (0-0.2) k/uL Poikilocytosis PT (9.0-12.0) sec INR (<1.2) APTT (22.0-30.0) sec Sodium (137-145) mmol/L Potassium (3.5-5.1) mmol/L Chloride (98-107) mmol/L Carbon Dioxide (22-30) mmol/L Anion Gap mmol/L BUN (7-17) mg/dL Creatinine (0.52-1.04) mg/dL Est GFR (CKD-EPI)AfAm (>60 ml/min/1.73 sqM) Est GFR (CKD-EPI)NonAf (>60 ml/min/1.73 sqM) Glucose (74-99) mg/dL Plasma Lactic Acid Timothy 1.9 (0.7-2.0) mmol/L Calcium (8.4-10.2) mg/dL Phosphorus (2.5-4.5) mg/dL Magnesium (1.6-2.3) mg/dL Total Bilirubin (0.2-1.3) mg/dL AST (14-36) U/L ALT (4-34) U/L Alkaline Phosphatase (38-126) U/L Creatine Kinase (30-135) U/L Troponin I <0.012 (0.000-0.034) ng/mL NT-Pro-B Natriuret Pep 43 pg/mL Total Protein (6.3-8.2) g/dL Albumin (3.5-5.0) g/dL TSH (0.465-4.680) mIU/L - EKG Data -: EKG Interpreted by Me (EKG shows sinus rhythm 94 ME 186 QRS 82 QTC 480) - Radiology Data Radiology results: report reviewed (Chest x-rays negative for acute disease), image reviewed Disposition Clinical Impression: Bronchospasm, Laryngospasm Disposition: HOME SELF-CARE Condition: Good Instructions (If sedation given, give patient instructions): Bronchospasm (ED) Is patient prescribed a controlled substance at d/c from ED?: No Referrals: Sigifredo Singh MD [Primary Care Provider] - 1-2 days
[2021-02-19 23:36] VITALS: PULSE 96
[2021-02-20] MEDS ORDERED: TRIAMCINOLONE 0.1% CREAM 80 GM TUBE TOPICAL STA (00:08)
[2021-02-20] MEDS ORDERED: FAMOTIDINE 20 MG/2 ML VIAL IV STA (00:08)
[2021-02-20] MEDS ORDERED: diphenhydrAMINE 50 MG/ML 1 ML VIAL IVP STA (00:08)
[2021-02-20] MEDS: DEXAMETHASONE SOD PHOSPHATE 10 MG/ML 1 ML VIAL IV STA (00:30)
--- NOTE | 2021-02-20 00:32 | XR ---
EXAMINATION TYPE: XR chest 2V DATE OF EXAM: 02/19/2021 COMPARISON: 05/30/2014 HISTORY: Weakness TECHNIQUE: 2 views FINDINGS: Heart and mediastinum are normal. Lungs are clear. Diaphragm is normal. Bony thorax appears normal. IMPRESSION: Normal chest. No change.
[2021-02-20 00:39] VITALS: BP 140/64; RESP 16; TEMP 98.6
== END 2021-02-20 01:07 | disposition home or self-care (01) ==
LOC: EC 21:47
DX: J98.01 Acute bronchospasm (principal); J38.5 Laryngeal spasm; E11.9 Type 2 diabetes mellitus without complications; I10 Essential (primary) hypertension; F41.9 Anxiety disorder, unspecified; F17.200 Nicotine dependence, unspecified, uncomplicated; Z79.4 Long term (current) use of insulin; Z79.1 Long term (current) use of non-steroidal anti-inflammatories (NSAID); Z79.899 Other long term (current) drug therapy; Z79.890 Hormone replacement therapy; Z88.1 Allergy status to other antibiotic agents; Z88.8 Allergy status to other drugs, medicaments and biological substances; Z90.49 Acquired absence of other specified parts of digestive tract; Z82.49 Family history of ischemic heart disease and other diseases of the circulatory system
CPT/HCPCS: 99285 ×2; 96374 ×2; 96375 ×3; 96361 ×2; 36415; 94640; 93005; 83880; 80053; 82550; 83605; 83735; 84100; 84443; 84484; 85025; 85610; 85730; 71046; J1200; J1100

== ENCOUNTER → 2021-02-23 | Outpatient (CLI) | payer MEDICARE ==
--- NOTE | 2021-02-23 14:34 | US ---
EXAMINATION TYPE: US pelvis complete transvag DATE OF EXAM: 02/23/2021 COMPARISON: 10-21-19 CLINICAL HISTORY: N83.0 Ovarian cyst, Z80.41 Family history ovarian cancer. TECHNIQUE: Transvaginal (TV). Transabdominal sonographic images of the pelvis were acquired. Trans vaginal sonographic images were medically necessary to better assess the following anatomy: Date of LMP: post alison EXAM MEASUREMENTS: Uterus: 4.3x1.9x3.1 cm Endometrial Stripe: 0.1 cm Right Ovary: 0.8x0.6x1.7 cm Left Ovary: 1.7x1.0x1.5 cm 1. Uterus: Anteverted wnl 2. Endometrium: Small amount of fluid in endo 3. Right Ovary: wnl 4. Left Ovary: Cyst 1.1x0.7x0.8cm 5. Bilateral Adnexa: wnl 6. Posterior cul-de-sac: wnl There is 1.1 cm hypoechoic to anechoic oval lesion in left ovary presumed benign. IMPRESSION: No suspicious ovarian masses on current study. Interval resolution of subcentimeter right ovarian hemorrhagic cyst.
--- NOTE | 2021-02-25 10:36 | MM ---
Reason for exam: screening (asymptomatic). Last mammogram was performed 1 year and 4 months ago. History: Patient is postmenopausal and had first child at age 35. Physical Findings: A clinical breast exam by your physician is recommended on an annual basis and results should be correlated with mammographic findings. MG 3D Screening Mammo W/Cad Bilateral CC and MLO view(s) were taken. XCCL view(s) were taken of the left breast. Prior study comparison: October 30, 2019, bilateral MG 3d screening mammo w/cad. July 20, 2018, bilateral MG screening mammo w CAD. July 03, 2017, bilateral MG screening mammo w CAD. There are scattered fibroglandular densities. Benign appearing calcifications bilaterally. No significant changes when compared with prior studies. ASSESSMENT: Benign, BI-RAD 2 RECOMMENDATION: Routine screening mammogram of both breasts in 1 year.
== END | disposition home or self-care (01) ==
LOC: RADUSWWP 13:10
PROVIDERS: ATTEND Obstetrics & Gynecology
DX: Z12.31 Encounter for screening mammogram for malignant neoplasm of breast (principal); N83.202 Unspecified ovarian cyst, left side; Z80.41 Family history of malignant neoplasm of ovary
CPT/HCPCS: 36415; 76830; 76856; 77063; 77067; 86304

== ENCOUNTER 2021-11-17 06:50 | Day surgery (SDC) | payer MEDICARE ==
[2021-11-15 09:58] VITALS: BMI 35.7
--- NOTE | 2021-11-17 07:37 | P.GSHP ---
History of Present Illness H&P Date: 11/17/21 CHIEF COMPLAINT: Colon screen HISTORY OF PRESENT ILLNESS: The patient is a 66-year-old female who presents for colon screen. Lower endoscopy was offered for further evaluation and management. PAST MEDICAL HISTORY: Please see list. PAST SURGICAL HISTORY: Please see list. MEDICATIONS: Please see list. ALLERGIES: Please see list. SOCIAL HISTORY: No illicit drug use FAMILY HISTORY: No reports of Crohn disease or ulcerative colitis. REVIEW OF ORGAN SYSTEMS: CONSTITUTIONAL: No reports of fevers or chills. PHYSICAL EXAM: VITAL SIGNS: Stable GENERAL: Well-developed pleasant in no acute distress. HEENT: No scleral icterus. Extraocular movements grossly intact. Moist buccal mucosa. NECK: Supple without lymphadenopathy. CHEST: Unlabored respirations. Equal bilateral excursions. CARDIOVASCULAR: Regular rate and rhythm. Distal 2+ pulses. ABDOMEN: Soft, nontender, nondistended. MUSCULOSKELETAL: No clubbing, cyanosis, or edema. ASSESSMENT: 1. Colon screen. PLAN: 1. Recommend proceeding with a lower endoscopy Past Medical History Past Medical History: Diabetes Mellitus, Hyperlipidemia, Hypertension, Musculoskeletal Disorder, Thyroid Disorder Additional Past Medical History / Comment(s): MS, SEASONAL ALLERGIES, RESTLESS LEG, History of Any Multi-Drug Resistant Organisms: None Reported Past Surgical History: Back Surgery, Cholecystectomy, Tonsillectomy Additional Past Surgical History / Comment(s): D&C, COLONOSCOPY, left knee surgery, back procedure Past Anesthesia/Blood Transfusion Reactions: No Reported Reaction Smoking Status: Former smoker - Past Family History Sister(s) Family Medical History: Cancer Additional Family Medical History / Comment(s): Ovarian cancer Medications and Allergies Home Medications Medication Instructions Recorded Confirmed Type Levothyroxine Sodium [Synthroid] 75 mcg PO HS 05/30/14 11/17/21 History Multivitamins, Thera [Multivitamin 1 tab PO DAILY 05/30/14 11/17/21 History (formulary)] [place]-3 Fatty Acids/Fish Oil [Fish 1 cap PO DAILY 05/30/14 11/15/21 History Oil 1,000 mg Softgel] Pregabalin [Lyrica] 100 mg PO HS 05/30/14 11/17/21 History Venlafaxine HCl ER [Effexor XR] 150 mg PO DAILY 05/30/14 11/17/21 History metFORMIN HCL [metFORMIN HCL ER] 1,000 mg PO BID 05/30/14 11/17/21 History Atorvastatin Calcium [Lipitor] 20 mg PO HS #30 tab 05/31/14 11/17/21 Rx Cholecalciferol (Vitamin D3) 10,000 unit PO DAILY 04/06/17 11/17/21 History [Vitamin D3] Dextroamphetamine/Amphetamine 25 mg PO DAILY 04/06/17 11/17/21 History [Adderall Xr] Dulaglutide [Trulicity] 4.5 mg SQ Q7D 04/06/17 11/17/21 History EPINEPHrine (Auto Inject) [Epipen] 0.3 mg IM ONCE PRN 04/06/17 11/17/21 History Pramipexole [Mirapex] 0.25 mg PO HS 04/06/17 11/17/21 History Pregabalin [Lyrica] 50 mg PO DAILY 04/06/17 11/17/21 History HYDROcodone/APAP 10-325MG [[place] 1 tab PO QID PRN 02/19/21 11/17/21 History 10-325] Insulin Aspart [NovoLOG Flexpen] 6 units SQ ACHS 02/19/21 11/17/21 History Insulin Glargine,Hum.rec.anlog 65 units SQ DAILY 02/19/21 11/17/21 History [Toujeo Solostar] Meloxicam [Mobic] 7.5 mg PO Q48H 02/19/21 11/17/21 History Pioglitazone [Actos] 30 mg PO DAILY 02/19/21 11/17/21 History Tolterodine ER [Detrol LA] 4 mg PO HS 02/19/21 11/17/21 History Cetirizine HCl [Zyrtec] 10 mg PO HS 11/15/21 11/17/21 History Multivitamins, Thera [Multivitamin 1 tab PO DAILY 11/15/21 11/17/21 History (formulary)] Potassium Chloride [Potassium 10 meq PO DAILY 11/15/21 11/17/21 History Chloride ER] Spironolact/Hydrochlorothiazid 1 each PO DAILY 11/15/21 11/17/21 History [Aldactazide 25-25 MG] Tysabri 1 dose IVPB Q30D 11/15/21 History Allergies Allergy/AdvReac Type Severity Reaction Status Date / Time lisinopril Allergy Rash/Hives Verified 11/17/21 07:13 adhesive tape AdvReac TEARS SKIN Verified 11/17/21 07:13 erythromycin base AdvReac Nausea & Verified 11/17/21 07:13 Vomiting
[2021-11-17] MEDS: LACTATED RINGERS 1,000 ML IV SCH ×2 (07:39→07:45)
[2021-11-17 07:44] VITALS: TEMP 97.4
[2021-11-17] MEDS ORDERED: LIDOCAINE 2% INJ 20 MG/ML (2 ML VIAL) ONE (07:44)
[2021-11-17] MEDS ORDERED: PROPOFOL 10 MG/ML 20 ML VIAL IV ONE (07:44)
[2021-11-17 07:49] LABS: Glucose,Whole Blood 130 mg/dL (70-110)
--- NOTE | 2021-11-17 08:05 | P.PCN ---
Date of Procedure: 11/17/21 Description of Procedure: PREOPERATIVE DIAGNOSIS: Gastroesophageal reflux disease Dysphagia POSTOPERATIVE DIAGNOSIS: Upper esophageal stenosis Severe gastritis with recent bleed Gastric ulcers with bleeding Duodenal polyp OPERATION: Esophagogastroduodenoscopy with rigid dilator over the guidewire 57 Fr with dilation Esophagogastroduodenoscopy with cold forceps biopsies stomach/antrum SURGEON: Hailey Wilkinson MD ANESTHESIA: MAC. INDICATIONS: The patient is a [id number] female who presents with a history of gastroesophageal reflux disease and dysphagia. Benefits and risks of the procedure were described. Informed consent was obtained. DESCRIPTION: The patient was brought into the endoscopy suite and laid in the left lateral decubitus position. After a timeout was confirmed, the procedure was initiated. An Olympus gastroscope was passed into the posterior oropharynx where an upper esophageal stenosis was identified. The scope was passed down to the distal esophagus. To address the upper esophageal stenosis, rigid dilator over guidewire was selected. Next using an [place] rigid dilator, a guidewire was placed through the gastroscope. Next the scope was withdrawn. A 57-[place] rigid [place] dilator was passed carefully along the posterior oropharynx to 45 cm and left in place for 2-3 minutes stretch. The dilator was withdrawn including the guidewire. The scope was reentered along the posterior oropharynx with no findings of full- thickness tear of the upper esophageal sphincter. Additional findings below. Within the stomach, severe acute gastritis with gastric ulcerations with bleeding were identified along the body of the stomach with cold forceps biopsies obtained. Duodenal polyp 3 mm was removed using cold forceps at the second portion of the duodenum. The lower esophageal valve was evaluated with Hill grade 2 lower esophageal valve. LA grade B erosive esophagitis was identified. No full-thickness injury was encountered. The GI tract was desufflated. The patient tolerated the procedure well. FINDINGS: Upper esophageal stenosis dilated 57-[place] rigid dilator Diaphragmatic hiatus at 37 cm from the incisors Squamocolumnar junction 37 cm from the incisors. Severe gastritis and bleeding along the gastric body and fundus cold forceps biopsies obtained Acute gastric ulcerations and bleeding identified. Duodenum with 3 mm duodenal polyp removed using cold forceps biopsy at second portion LA grade B erosive esophagitis Hill grade 2 lower esophageal valve. RECOMMENDATIONS: Omeprazole 40 mg daily Carafate 1 g twice a day daily Repeat upper endoscopy 4 weeks
--- NOTE | 2021-11-17 08:31 | P.PCN ---
Date of Procedure: 11/17/21 Description of Procedure: PREOPERATIVE DIAGNOSIS: Colonoscopy screening POSTOPERATIVE DIAGNOSIS: Tubular adenoma sigmoid colon Tubular adenoma cecum Stable adenoma ascending colon Tubular adenoma hepatic flexure Internal hemorrhoids, grade 2 OPERATION: Colonoscopy to the ileocecal valve and appendiceal orifice, cecum Colonoscopy with cold forceps biopsy SURGEON: Hailey Wilkinson MD. ANESTHESIA: MAC. INDICATIONS: The patient is an 66-year-old female who presents family history of malignant colon polyps and personal history of colon polyps. Last colonoscopy 10 years. Benefits and risks were described and informed consent was obtained. DESCRIPTION OF PROCEDURE: The patient had undergone Sutab prep. The patient had been brought into the operating room and laid in the left lateral decubitus position. After adequate intravenous sedation, the rectum was examined with 2% lidocaine jelly. External hemorrhoids were encountered. The rectal tone was within normal limits. No lesions were palpated in the rectal vault. An Olympus colonoscope was advanced until the cecum, ileocecal valve and appendiceal orifice were clearly viewed. The prep was good. No sigmoid diverticulosis was encountered. Colonic polyps were found and removed. No evidence of focal colitis was found. Retroflexion of the scope demonstrated grade 2 internal hemorrhoids without active bleeding or inflammation. The colon was desufflated. The patient had tolerated the procedure well. Withdrawal time was over 6 minutes. FINDINGS: [place] preparation quality scale 2 (1-5) Internal hemorrhoids, grade 2 External hemorrhoids, grade 2. No arteriovenous malformations. No sigmoid diverticulosis Removal of 5 polyps: - Cold forceps biopsy at 25 cm from the anal verge, 3 mm polyp. - Cold forceps biopsy at hepatic flexure 2, 4 to 5 mm polyp. - Cold forceps biopsy at ascending colon, 6 mm polyp. - Cold forceps biopsy at cecum, 3 mm polyp. No focal colitis. RECOMMENDATIONS: Given severity of tubular adenomas, recommend repeat colonoscopy 2 years, 2023 Plan - Discharge Summary Discharge Rx Participant: No New Discharge Prescriptions: Continue metFORMIN HCL [metFORMIN HCL ER] 1,000 mg PO BID Levothyroxine Sodium [Synthroid] 75 mcg PO HS Venlafaxine HCl ER [Effexor XR] 150 mg PO DAILY Pregabalin [Lyrica] 100 mg PO HS Multivitamins, Thera [Multivitamin (formulary)] 1 tab PO DAILY [place]-3 Fatty Acids/Fish Oil [Fish Oil 1,000 mg Softgel] 1 cap PO DAILY Atorvastatin Calcium [Lipitor] 20 mg PO HS #30 tab EPINEPHrine (Auto Inject) [Epipen] 0.3 mg IM ONCE PRN PRN Reason: Anaphylaxis Pramipexole [Mirapex] 0.25 mg PO HS Pregabalin [Lyrica] 50 mg PO DAILY Dextroamphetamine/Amphetamine [Adderall Xr] 25 mg PO DAILY Dulaglutide [Trulicity] 4.5 mg SQ Q7D Cholecalciferol (Vitamin D3) [Vitamin D3] 10,000 unit PO DAILY HYDROcodone/APAP 10-325MG [[place] 10-325] 1 tab PO QID PRN PRN Reason: Pain Insulin Aspart [NovoLOG Flexpen] 6 units SQ ACHS Meloxicam [Mobic] 7.5 mg PO Q48H Pioglitazone [Actos] 30 mg PO DAILY Spironolact/Hydrochlorothiazid [Aldactazide 25-25 MG] 1 each PO DAILY Cetirizine HCl [Zyrtec] 10 mg PO HS Insulin Glargine,Hum.rec.anlog [Toujeo Solostar] 65 units SQ DAILY Tolterodine ER [Detrol LA] 4 mg PO HS Tysabri 1 dose IVPB Q30D Potassium Chloride [Potassium Chloride ER] 10 meq PO DAILY Multivitamins, Thera [Multivitamin (formulary)] 1 tab PO DAILY Discharge Medication List Levothyroxine Sodium [Synthroid] 75 mcg PO HS 05/30/14 [History] Multivitamins, Thera [Multivitamin (formulary)] 1 tab PO DAILY 05/30/14 [History] [place]-3 Fatty Acids/Fish Oil [Fish Oil 1,000 mg Softgel] 1 cap PO DAILY 05/30/14 [History] Pregabalin [Lyrica] 100 mg PO HS 05/30/14 [History] Venlafaxine HCl ER [Effexor XR] 150 mg PO DAILY 05/30/14 [History] metFORMIN HCL [metFORMIN HCL ER] 1,000 mg PO BID 05/30/14 [History] Atorvastatin Calcium [Lipitor] 20 mg PO HS #30 tab 05/31/14 [Rx] Cholecalciferol (Vitamin D3) [Vitamin D3] 10,000 unit PO DAILY 04/06/17 [History] Dextroamphetamine/Amphetamine [Adderall Xr] 25 mg PO DAILY 04/06/17 [History] Dulaglutide [Trulicity] 4.5 mg SQ Q7D 04/06/17 [History] EPINEPHrine (Auto Inject) [Epipen] 0.3 mg IM ONCE PRN 04/06/17 [History] Pramipexole [Mirapex] 0.25 mg PO HS 04/06/17 [History] Pregabalin [Lyrica] 50 mg PO DAILY 04/06/17 [History] HYDROcodone/APAP 10-325MG [[place] 10-325] 1 tab PO QID PRN 02/19/21 [History] Insulin Aspart [NovoLOG Flexpen] 6 units SQ ACHS 02/19/21 [History] Insulin Glargine,Hum.rec.anlog [Toujeo Solostar] 65 units SQ DAILY 02/19/21 [History] Meloxicam [Mobic] 7.5 mg PO Q48H 02/19/21 [History] Pioglitazone [Actos] 30 mg PO DAILY 02/19/21 [History] Tolterodine ER [Detrol LA] 4 mg PO HS 02/19/21 [History] Cetirizine HCl [Zyrtec] 10 mg PO HS 11/15/21 [History] Multivitamins, Thera [Multivitamin (formulary)] 1 tab PO DAILY 11/15/21 [History] Potassium Chloride [Potassium Chloride ER] 10 meq PO DAILY 11/15/21 [History] Spironolact/Hydrochlorothiazid [Aldactazide 25-25 MG] 1 each PO DAILY 11/15/21 [History] Tysabri 1 dose IVPB Q30D 11/15/21 [History] Follow up Appointment(s)/Referral(s): Hailey Wilkinson MD [STAFF PHYSICIAN] - 12/07/21 Patient Instructions/Handouts: Colorectal Polyps (GEN), Peptic Ulcer (DC), Diet for Stomach Ulcers and Gastritis (ED), Esophageal Dilation (DC) Activity/Diet/Wound Care/Special Instructions: Repeat colonoscopy in 2 years, 2023 Discharge Disposition: HOME SELF-CARE
[2021-11-17 08:45] VITALS: PULSE 92
[2021-11-17 09:11] VITALS: BP 127/72; RESP 15
== END 2021-11-17 09:34 | disposition home or self-care (01) ==
LOC: ORWHC2ENDO 06:50
PROVIDERS: ATTEND Surgery Plastic and Reconstructive Surgery
DX: Z12.11 Encounter for screening for malignant neoplasm of colon (principal); D12.2 Benign neoplasm of ascending colon; D12.0 Benign neoplasm of cecum; D12.3 Benign neoplasm of transverse colon; D12.5 Benign neoplasm of sigmoid colon; K64.1 Second degree hemorrhoids; K22.2 Esophageal obstruction; K29.51 Unspecified chronic gastritis with bleeding; K25.0 Acute gastric ulcer with hemorrhage; K31.7 Polyp of stomach and duodenum; K21.00 Gastro-esophageal reflux disease with esophagitis, without bleeding; K44.9 Diaphragmatic hernia without obstruction or gangrene; Z86.010 Personal history of colon polyps; Z83.71 Family history of colonic polyps; E11.69 Type 2 diabetes mellitus with other specified complication; E78.5 Hyperlipidemia, unspecified; I10 Essential (primary) hypertension; E07.9 Disorder of thyroid, unspecified; Z90.49 Acquired absence of other specified parts of digestive tract; Z87.891 Personal history of nicotine dependence; Z79.4 Long term (current) use of insulin; Z79.890 Hormone replacement therapy; Z79.899 Other long term (current) drug therapy; Z79.1 Long term (current) use of non-steroidal anti-inflammatories (NSAID); Z88.8 Allergy status to other drugs, medicaments and biological substances; Z88.3 Allergy status to other anti-infective agents; Z91.09 Other allergy status, other than to drugs and biological substances; G35 Multiple sclerosis; G25.81 Restless legs syndrome; Z80.41 Family history of malignant neoplasm of ovary
CPT/HCPCS: 43248; 88305; 88342; 45380; 43239; J2704; J2001

== ENCOUNTER 2021-12-30 06:55 | Day surgery (SDC) | payer MEDICARE ==
[2021-12-28 12:04] VITALS: BMI 32.8
[~2021-12-30 06:55] MED LIST: LACTATED RINGERS 1,000 ML IV SCH; LIDOCAINE 1% (10MG/ML) FOR IV START INTRADERMA PRN
[2021-12-30] MEDS ORDERED: ONDANSETRON 4 MG/2 ML VIAL IVP PRN (07:00)
--- NOTE | 2021-12-30 07:19 | P.GSHP ---
History of Present Illness H&P Date: 12/30/21 CHIEF COMPLAINT: GERD HISTORY OF PRESENT ILLNESS: The patient is a 66-year-old female who presents reports gastroesophageal reflux disease. Upper endoscopy was offered for further evaluation and management. PAST MEDICAL HISTORY: Please see list. PAST SURGICAL HISTORY: Please see list. MEDICATIONS: Please see list. ALLERGIES: Please see list. SOCIAL HISTORY: No illicit drug use FAMILY HISTORY: No reports of Crohn disease or ulcerative colitis. REVIEW OF ORGAN SYSTEMS: CONSTITUTIONAL: No reports of fevers or chills. GI: Denies any blood in stools or constipation. PHYSICAL EXAM: VITAL SIGNS: Stable GENERAL: Well-developed and pleasant in no acute distress. HEENT: No scleral icterus. Extraocular movements grossly intact. Moist buccal mucosa. NECK: Supple without lymphadenopathy. CHEST: Unlabored respirations. Equal bilateral excursions. CARDIOVASCULAR: Regular rate and rhythm. Distal 2+ pulses. ABDOMEN: Soft, nondistended. MUSCULOSKELETAL: No clubbing, cyanosis, or edema. ASSESSMENT: 1. Gastroesophageal reflux disease PLAN: 1. Recommend proceeding with an upper endoscopy Past Medical History Past Medical History: Diabetes Mellitus, Hyperlipidemia, Hypertension, Musculoskeletal Disorder, Thyroid Disorder Additional Past Medical History / Comment(s): MS, SEASONAL ALLERGIES, RESTLESS LEG History of Any Multi-Drug Resistant Organisms: None Reported Past Surgical History: Back Surgery, Cholecystectomy, Tonsillectomy Additional Past Surgical History / Comment(s): D&C, COLONOSCOPY, left knee surgery, back procedure Past Anesthesia/Blood Transfusion Reactions: No Reported Reaction Past Psychological History: Anxiety Smoking Status: Former smoker Past Alcohol Use History: None Reported Additional Past Alcohol Use History / Comment(s): QUIT SMOKING 1987 Past Drug Use History: None Reported - Past Family History Sister(s) Family Medical History: Cancer Additional Family Medical History / Comment(s): Ovarian cancer Medications and Allergies Home Medications Medication Instructions Recorded Confirmed Type Levothyroxine Sodium [Synthroid] 75 mcg PO HS 05/30/14 12/28/21 History [place]-3 Fatty Acids/Fish Oil [Fish 1 cap PO DAILY 05/30/14 12/28/21 History Oil 1,000 mg Softgel] Pregabalin [Lyrica] 100 mg PO HS 05/30/14 12/28/21 History Venlafaxine HCl ER [Effexor XR] 150 mg PO DAILY 05/30/14 12/28/21 History metFORMIN HCL [metFORMIN HCL ER] 1,000 mg PO BID 05/30/14 12/28/21 History Atorvastatin Calcium [Lipitor] 20 mg PO HS #30 tab 05/31/14 12/28/21 Rx Cholecalciferol (Vitamin D3) 10,000 unit PO DAILY 04/06/17 12/28/21 History [Vitamin D3] Dextroamphetamine/Amphetamine 25 mg PO DAILY 04/06/17 12/28/21 History [Adderall Xr] Dulaglutide [Trulicity] 4.5 mg SQ Q7D 04/06/17 12/28/21 History Pramipexole [Mirapex] 0.25 mg PO HS 04/06/17 12/28/21 History Pregabalin [Lyrica] 50 mg PO DAILY 04/06/17 12/28/21 History HYDROcodone/APAP 10-325MG [[place] 1 tab PO QID PRN 02/19/21 12/28/21 History 10-325] Insulin Aspart [NovoLOG Flexpen] 0 units SQ QID 02/19/21 12/28/21 History Insulin Glargine,Hum.rec.anlog 70 units SQ QAM 02/19/21 12/28/21 History [[place] Solostar] Pioglitazone [Actos] 30 mg PO DAILY 02/19/21 12/28/21 History Tolterodine ER [Detrol LA] 4 mg PO HS 02/19/21 12/28/21 History Cetirizine HCl [Zyrtec] 10 mg PO DAILY 11/15/21 12/28/21 History Multivitamins, Thera [Multivitamin 1 tab PO DAILY 11/15/21 11/17/21 History (formulary)] Potassium Chloride [Potassium 10 meq PO DAILY 11/15/21 12/28/21 History Chloride ER] Spironolact/Hydrochlorothiazid 1 each PO DAILY 11/15/21 12/28/21 History [Aldactazide 25-25 MG] Tysabri 1 dose IVPB Q30D 11/15/21 12/28/21 History Pantoprazole [Protonix] 40 mg PO DAILY #30 tab 11/17/21 12/28/21 Rx Sucralfate [Carafate] 1 gm PO BID #60 tablet 11/17/21 12/28/21 Rx Loratadine [Claritin] 5 mg PO DAILY 12/28/21 12/28/21 History Allergies Allergy/AdvReac Type Severity Reaction Status Date / Time lisinopril Allergy Rash/Hives Verified 12/28/21 11:50 adhesive tape AdvReac TEARS SKIN Verified 12/28/21 11:50 erythromycin base AdvReac Nausea & Verified 12/28/21 11:50 Vomiting
[2021-12-30 07:24] VITALS: TEMP 96.8
[2021-12-30 08:05] LABS: Glucose,Whole Blood 124 mg/dL (70-110)
[2021-12-30] MEDS ORDERED: LIDOCAINE 2% INJ 20 MG/ML (2 ML VIAL) ONE (08:05)
[2021-12-30] MEDS ORDERED: PROPOFOL 10 MG/ML 20 ML VIAL IV ONE (08:05)
--- NOTE | 2021-12-30 08:20 | P.PCN ---
Date of Procedure: 12/30/21 Description of Procedure: PREOPERATIVE DIAGNOSIS: Gastric ulcer Gastroesophageal reflux disease. Morbid obesity. POSTOPERATIVE DIAGNOSIS: Gastroesophageal reflux disease. Morbid obesity. Gastritis. OPERATION: Esophagogastroduodenoscopy with biopsies along antrum. SURGEON: Hailey Wilkinson MD ANESTHESIA: MAC. INDICATIONS: The patient is a 66-year-old female who presents with reflux disease. Benefits and risks of the procedure were described. Informed consent was obtained. DESCRIPTION: The patient was brought into the endoscopy suite and laid in the left lateral decubitus position. An Olympus gastroscope was passed along the posterior oropharynx down to the distal esophagus where the squamocolumnar junction was encountered at 38 cm from the incisors. The stomach was entered and no bile reflux was found. Additional findings are listed below. Biopsies with cold forceps were obtained of the antrum. The first through third portion of the duodenum was examined. Retroflexion of the scope confirmed Hill grade 2 lower esophageal valve. The squamocolumnar junction demonstrated LA grade B erosive esophagitis. The stomach was desufflated. The patient tolerated the procedure well. FINDINGS: Squamocolumnar junction 38 cm from the incisors. Diaphragmatic hiatus at 38 cm. Hill grade 2 lower esophageal valve. LA grade B erosive esophagitis. No active duodenitis. Chronic gastritis with biopsies obtained RECOMMENDATIONS: Upper endoscopy as needed. Plan - Discharge Summary Discharge Rx Participant: No New Discharge Prescriptions: Continue metFORMIN HCL [metFORMIN HCL ER] 1,000 mg PO BID Levothyroxine Sodium [Synthroid] 75 mcg PO HS Venlafaxine HCl ER [Effexor XR] 150 mg PO DAILY Pregabalin [Lyrica] 100 mg PO HS [place]-3 Fatty Acids/Fish Oil [Fish Oil 1,000 mg Softgel] 1 cap PO DAILY Atorvastatin Calcium [Lipitor] 20 mg PO HS #30 tab Pregabalin [Lyrica] 50 mg PO DAILY Dextroamphetamine/Amphetamine [Adderall Xr] 25 mg PO DAILY Dulaglutide [Trulicity] 4.5 mg SQ Q7D Cholecalciferol (Vitamin D3) [Vitamin D3] 10,000 unit PO DAILY HYDROcodone/APAP 10-325MG [[place] 10-325] 1 tab PO QID PRN PRN Reason: Pain Insulin Aspart [NovoLOG Flexpen] 0 units SQ QID Pioglitazone [Actos] 30 mg PO DAILY Spironolact/Hydrochlorothiazid [Aldactazide 25-25 MG] 1 each PO DAILY Cetirizine HCl [Zyrtec] 10 mg PO DAILY Sucralfate [Carafate] 1 gm PO BID #60 tablet Pantoprazole [Protonix] 40 mg PO DAILY #30 tab Loratadine [Claritin] 5 mg PO DAILY Insulin Glargine,Hum.rec.anlog [[place]jeo Solostar] 70 units SQ QAM Tolterodine ER [Detrol LA] 4 mg PO HS Tysabri 1 dose IVPB Q30D Potassium Chloride [Potassium Chloride ER] 10 meq PO DAILY Multivitamins, Thera [Multivitamin (formulary)] 1 tab PO DAILY Discharge Medication List Levothyroxine Sodium [Synthroid] 75 mcg PO HS 05/30/14 [History] [place]-3 Fatty Acids/Fish Oil [Fish Oil 1,000 mg Softgel] 1 cap PO DAILY 05/30/14 [History] Pregabalin [Lyrica] 100 mg PO HS 05/30/14 [History] Venlafaxine HCl ER [Effexor XR] 150 mg PO DAILY 05/30/14 [History] metFORMIN HCL [metFORMIN HCL ER] 1,000 mg PO BID 05/30/14 [History] Atorvastatin Calcium [Lipitor] 20 mg PO HS #30 tab 05/31/14 [Rx] Cholecalciferol (Vitamin D3) [Vitamin D3] 10,000 unit PO DAILY 04/06/17 [History] Dextroamphetamine/Amphetamine [Adderall Xr] 25 mg PO DAILY 04/06/17 [History] Dulaglutide [Trulicity] 4.5 mg SQ Q7D 04/06/17 [History] Pregabalin [Lyrica] 50 mg PO DAILY 04/06/17 [History] HYDROcodone/APAP 10-325MG [[place] 10-325] 1 tab PO QID PRN 02/19/21 [History] Insulin Aspart [NovoLOG Flexpen] 0 units SQ QID 02/19/21 [History] Insulin Glargine,Hum.rec.anlog [[place] Solostar] 70 units SQ QAM 02/19/21 [History] Pioglitazone [Actos] 30 mg PO DAILY 02/19/21 [History] Tolterodine ER [Detrol LA] 4 mg PO HS 02/19/21 [History] Cetirizine HCl [Zyrtec] 10 mg PO DAILY 11/15/21 [History] Multivitamins, Thera [Multivitamin (formulary)] 1 tab PO DAILY 11/15/21 [History] Potassium Chloride [Potassium Chloride ER] 10 meq PO DAILY 11/15/21 [History] Spironolact/Hydrochlorothiazid [Aldactazide 25-25 MG] 1 each PO DAILY 11/15/21 [History] Tysabri 1 dose IVPB Q30D 11/15/21 [History] Pantoprazole [Protonix] 40 mg PO DAILY #30 tab 11/17/21 [Rx] Sucralfate [Carafate] 1 gm PO BID #60 tablet 11/17/21 [Rx] Loratadine [Claritin] 5 mg PO DAILY 12/28/21 [History] Follow up Appointment(s)/Referral(s): Hailey Wilkinson MD [STAFF PHYSICIAN] - 01/18/22 Patient Instructions/Handouts: Gastritis (DC), Diet for Stomach Ulcers and Gastritis (ED) Discharge Disposition: HOME SELF-CARE
[2021-12-30 08:35] VITALS: BP 148/77; PULSE 82; RESP 16
== END 2021-12-30 08:54 | disposition home or self-care (01) ==
LOC: ORWHC2ENDO 06:55
PROVIDERS: ATTEND Surgery Plastic and Reconstructive Surgery
DX: K21.00 Gastro-esophageal reflux disease with esophagitis, without bleeding (principal); K29.50 Unspecified chronic gastritis without bleeding; K44.9 Diaphragmatic hernia without obstruction or gangrene; E66.01 Morbid (severe) obesity due to excess calories; Z68.32 Body mass index [BMI] 32.0-32.9, adult; E11.69 Type 2 diabetes mellitus with other specified complication; E78.5 Hyperlipidemia, unspecified; I10 Essential (primary) hypertension; Z90.49 Acquired absence of other specified parts of digestive tract; F41.9 Anxiety disorder, unspecified; Z87.891 Personal history of nicotine dependence; E07.9 Disorder of thyroid, unspecified; Z80.41 Family history of malignant neoplasm of ovary; Z79.890 Hormone replacement therapy; Z79.4 Long term (current) use of insulin; Z79.899 Other long term (current) drug therapy; Z88.3 Allergy status to other anti-infective agents; Z88.8 Allergy status to other drugs, medicaments and biological substances; Z91.09 Other allergy status, other than to drugs and biological substances; F32.A Depression, unspecified; G35 Multiple sclerosis
CPT/HCPCS: 88305; 43239; J2704; J2001

== ENCOUNTER → 2022-04-11 | Outpatient (CLI) | payer MEDICARE ==
--- NOTE | 2022-04-12 09:46 | US ---
EXAMINATION TYPE: US transvaginal DATE OF EXAM: 04/11/2022 COMPARISON: 02/23/2021 CLINICAL HISTORY: 67-year-old female Z80.41 FAM HX OVARIAN CANCER. Family history of ovarian cancer TECHNIQUE: Transvaginal (TV). Date of LMP: 20 years ago FINDINGS: EXAM MEASUREMENTS: Uterus: 3.8 x 2.3 x 3.6 cm Endometrial Stripe: 0.4 cm Right Ovary: 1.2 x 1.0 x 1.6 cm Left Ovary: 1.6 x 1.4 x 1.3 cm 1. Uterus: Anteverted and otherwise without gross abnormality 2. Endometrium: Two stripes measuring up to 4 mm, by a small amount of fluid in the uterin e cavity. 3. Right Ovary: appears wnl 4. Left Ovary: cystic area = 0.9 x 0.8 x 0.8cm (versus 1.1 cm, previously) 5. Bilateral Adnexa: wnl 6. Posterior cul-de-sac: wnl IMPRESSION: 1. Small amount of fluid within the uterine cavity similar to 02/23/2021. The exact etiology is unclea r but would generally be abnormal in a postmenopausal female. Clinically correlate. The endometrial s tripe is thin at 4 mm. 2. A 9 mm cyst of the left ovary, relatively unchanged from prior exam. Annual surveillance recommend ed.
== END | disposition home or self-care (01) ==
LOC: RADUSWWP 15:07
PROVIDERS: ATTEND Obstetrics & Gynecology
DX: N83.202 Unspecified ovarian cyst, left side (principal); Z80.41 Family history of malignant neoplasm of ovary
CPT/HCPCS: 76830; 86304

== ENCOUNTER → 2022-04-28 | Outpatient (CLI) | payer MEDICARE ==
--- NOTE | 2022-04-29 07:51 | MM ---
Reason for Exam: Screening (asymptomatic). Last mammogram was performed 1 year(s) and 2 month(s) ago. Patient History: Menarche at age 11. First Full-Term at age 35. Late child-bearing (after 30). Postmenopausal. Patient has history of breast feeding. Sister had ovarian cancer, age 50. Sister tested for BRCA2 outcome was negative. Sister tested for BRCA1 outcome was negative. Risk Values: [place] 5 year model risk: 2.4%. NCI Lifetime model risk: 7.6%. Prior Study Comparison: 07/20/2018 Bilateral Screening Mammogram, [facility]. 10/30/2019 Bilateral Screening Mammogram, [facility]. 02/23/2021 Bilateral Screening Mammogram, [facility]. Tissue Density: There are scattered fibroglandular densities. Findings: Analyzed By CAD. There are scattered and loosely grouped benign-appearing small round calcifications throughout the bilateral breasts redemonstrated. Benign-appearing bilateral axillary lymph nodes are again seen. There is no suspicious group of microcalcifications or new suspicious mass in either breast. Overall Assessment: Benign, BI-RAD 2 Management: Screening Mammogram of both breasts in 1 year. A clinical breast exam by your physician is recommended on an annual basis and results should be correlated with mammographic findings. Electronically signed and approved by: Ranjit Pérez M.D.
== END | disposition home or self-care (01) ==
LOC: RADMAMWWP 12:03
PROVIDERS: ATTEND Obstetrics & Gynecology
DX: Z12.31 Encounter for screening mammogram for malignant neoplasm of breast (principal); Z78.0 Asymptomatic menopausal state
CPT/HCPCS: 77063; 77067

== ENCOUNTER → 2022-09-05 | Outpatient (CLI) | payer MEDICARE ==
[2022-09-05 20:27] LABS: INR 0.91 (0.90-1.11); Prothrombin Time 10.3 sec (9.9-11.9)
[2022-09-05 22:06] LABS: Basophils # (A) 0.05 X 10*3/uL (0.00-0.10); Basophils % (A) 0.6 %; Eosinophils # (A) 0.25 X 10*3/uL (0.04-0.35); Eosinophils % (A) 3.1 %; HCT 43.1 % (37.2-46.3); HGB 13.7 g/dL (12.0-15.0); Immature Grans, Automated 0.7 %; Lymphocytes # (A) 3.05 X 10*3/uL (0.90-5.00); Lymphocytes % (A) 38.1 %; MCH 27.6 pg (27.0-32.0); MCHC 31.8 g/dL (32.0-37.0); MCV 86.7 fL (80.0-97.0); Mean Platelet Volume 11.2 fL (9.5-12.2); Monocytes # (A) 0.73 X 10*3/uL (0.20-1.00); Monocytes % (A) 9.1 %; NRBC Per 100 WBC 0.4 /100 WBCS (0.0-0.0); Neutrophils # (A) 3.87 X 10*3/uL (1.80-7.70); Neutrophils % (A) 48.4 %; Platelet Count 221 X 10*3/uL (140-440); RBC 4.97 X 10*6/uL (4.10-5.20); RDW 14.8 % (11.5-14.5); WBC 8.01 X 10*3/uL (4.50-10.00)
[2022-09-05 22:10] LABS: African American GFR (CKD) 78.8 (60.0-200.0); Anion Gap 11.2 mmol/L (10.00-18.00); BUN/Creat Ratio 25.49 Ratio (12.00-20.00); Blood Urea Nitrogen 22.3 mg/dL (9.0-27.0); Calcium 10.1 mg/dL (8.7-10.3); Carbon Dioxide 32.2 mmol/L (20.0-27.5); Potassium 4.4 mmol/L (3.5-5.5)
== END | disposition home or self-care (01) ==
LOC: LABWHC1 14:21
PROVIDERS: ATTEND Family Medicine
DX: Z01.818 Encounter for other preprocedural examination (principal); I23.2 Ventricular septal defect as current complication following acute myocardial infarction; R94.31 Abnormal electrocardiogram [ECG] [EKG]
CPT/HCPCS: 36415; 80048; 85025; 85610; 93005

== ENCOUNTER → 2022-09-30 | Outpatient (CLI) | payer MEDICARE | END | disposition home or self-care (01) | LOC: LABPAT 16:23 | PROVIDERS: ATTEND Orthopaedic Surgery | DX: Z01.812 Encounter for preprocedural laboratory examination (principal); M16.11 Unilateral primary osteoarthritis, right hip; Z22.322 Carrier or suspected carrier of Methicillin resistant Staphylococcus aureus | CPT/HCPCS: 87070 ==

== ENCOUNTER 2022-10-04 05:50 | Observation (INO) | payer MEDICARE ==
[2022-09-29 10:29] VITALS: BMI 37.4
--- NOTE | 2022-10-03 08:29 | P.HPOR ---
History of Present Illness H&P Date: 10/03/22 Chief Complaint: Right hip pain The patient is a 67-year-old retired female presents with progressive right hip pain for the past several years worsening recently. She has pain in the groin and thigh worse with weightbearing activities. She is having night symptoms. She is trying medications without much relief. She also has chronic low back pain for which she's been receiving treatment. Review of Systems As per HPI Past Medical History Past Medical History: Diabetes Mellitus, Hyperlipidemia, Hypertension, Musculoskeletal Disorder, Neurologic Disorder, Thyroid Disorder Additional Past Medical History / Comment(s): MS-uses cane PRN, seasonal allergies, Restless Leg Syndrome, Degenerative Disc Disease L3-L4-L5. History of Any Multi-Drug Resistant Organisms: None Reported Past Surgical History: Cholecystectomy, Orthopedic Surgery, Tonsillectomy Additional Past Surgical History / Comment(s): D&C, colonoscopy, left knee surgery, Past Anesthesia/Blood Transfusion Reactions: No Reported Reaction Additional Past Anesthesia/Blood Transfusion Reaction / Comment(s): No hx blood transfusion. Past Psychological History: Anxiety Smoking Status: Former smoker Past Alcohol Use History: None Reported Additional Past Alcohol Use History / Comment(s): QUIT SMOKING IN 1987. Past Drug Use History: None Reported - Past Family History Sister(s) Family Medical History: Cancer, Deep Vein Thrombosis (DVT) Additional Family Medical History / Comment(s): Ovarian cancer. Son(s) Family Medical History: Cancer Medications and Allergies Home Medications Medication Instructions Recorded Confirmed Type Levothyroxine Sodium [Synthroid] 75 mcg PO HS 05/30/14 09/29/22 History [place]-3 Fatty Acids/Fish Oil [Fish 1 cap PO DAILY 05/30/14 09/29/22 History Oil 1,000 mg Softgel] Pregabalin [Lyrica] 100 mg PO HS 05/30/14 09/29/22 History Venlafaxine HCl ER [Effexor XR] 150 mg PO QAM 05/30/14 09/29/22 History Cholecalciferol (Vitamin D3) 10,000 unit PO DAILY 04/06/17 09/29/22 History [Vitamin D3] Dextroamphetamine/Amphetamine 25 mg PO DAILY 04/06/17 09/29/22 History [Adderall Xr] Dulaglutide [Trulicity] 4.5 mg SQ TH 04/06/17 09/29/22 History Pregabalin [Lyrica] 50 mg PO QAM 04/06/17 09/29/22 History HYDROcodone/APAP 10-325MG [[place] 1 tab PO 5XD PRN 02/19/21 09/29/22 History 10-325] Insulin Aspart [NovoLOG Flexpen] 0 units SQ QID 02/19/21 09/29/22 History Insulin Glargine,Hum.rec.anlog 70 units SQ QAM 02/19/21 09/29/22 History [[place] Solostar] Pioglitazone [Actos] 30 mg PO DAILY 02/19/21 09/29/22 History Tolterodine ER [Detrol LA] 4 mg PO HS 02/19/21 09/29/22 History Cetirizine HCl [Zyrtec] 10 mg PO HS 11/15/21 09/29/22 History Multivitamins, Thera [Multivitamin 1 tab PO DAILY 11/15/21 09/29/22 History (formulary)] Potassium Chloride [Potassium 10 meq PO DAILY 11/15/21 09/29/22 History Chloride ER] Spironolact/Hydrochlorothiazid 1 each PO DAILY 11/15/21 09/29/22 History [Aldactazide 25-25 MG] Tysabri 1 dose IVPB Q30D 11/15/21 09/29/22 History Loratadine [Claritin] 10 mg PO DAILY 12/28/21 09/29/22 History Pramipexole [Mirapex] 0.25 mg PO HS 06/23/22 09/29/22 History hydrOXYzine pamoate [Vistaril] 25 mg PO DAILY PRN MDD States has 06/23/22 09/29/22 History never had to take. Atorvastatin Calcium 10 mg PO DAILY 09/29/22 09/29/22 History Cyclobenzaprine [Flexeril] 10 mg PO BID 09/29/22 09/29/22 History Allergies Allergy/AdvReac Type Severity Reaction Status Date / Time lisinopril Allergy Rash/Hives Verified 09/29/22 09:58 adhesive tape AdvReac TEARS Verified 09/29/22 09:58 SKIN,paper tape is ok erythromycin base AdvReac Nausea & Verified 09/29/22 09:58 Vomiting Physical Examination - Hip right Gait: antalgic Tenderness with palpation: anterior Pain with motion: internal rotation and hip flexion ROM: flexion: 70 degrees ROM: internal rotation: 10 degrees (With pain) ROM: external rotation: 60 degrees Crepitus with motion: Yes Strength: extension: 5/5 Strength: flexion: 5/5 Strength: abduction: 5/5 Tests: impingement tests: positive Results The patient is a well-developed well-nourished female proximal a 5 foot 6, 222 pounds of endomorphic habitus. HEENT exam is nonfocal, neck is supple. She has limited painful range of motion of the right hip. Clinically she has 1 cm shortening of the right lower extremity compared to left. She has an antalgic gait pattern. Her distal neurovascular appears intact in the right lower extremity. - Diagnostic results Hip x-ray: image reviewed (2 views of the right hip obtained in the office show severe joint space narrowing with [id number] changes and subchondral sclerosis.) Assessment and Plan Assessment: Right hip severe osteoarthrosis Chronic low back pain Plan: I talked the patient at length regarding her condition along with treatment options. At this point she is quite limited because of pain related to her right hip osteoarthrosis despite previous conservative measures. After thorough discussion she opted to proceed with surgery. We will plan to proceed with right total hip arthroplasty utilizing a lateral approach. We will institute DVT prophylaxis postoperatively.
[~2022-10-04 05:50] MED LIST changes: +ACETAMINOPHEN TAB 500 MG TAB PO PRN; +DEXAMETHASONE SOD PHOSPHATE 4 MG/ML 1 ML VIAL IV ONE; -LACTATED RINGERS 1,000 ML IV SCH; +MELOXICAM 7.5 MG TAB PO PRN; +MIDAZOLAM 2 MG/2 ML VIAL IV PRN; +ONDANSETRON 4 MG/2 ML VIAL IVP ONE; +TRANEXAMIC ACID IN NACL,ISO-OS 1,000 MG in SALINE 1 100ML.BAG IVPB PRN
[2022-10-04 06:55] LABS: Glucose,Whole Blood 135 mg/dL (70-110)
[2022-10-04] MEDS: LACTATED RINGERS 1,000 ML IV SCH (07:15)
[2022-10-04] MEDS ORDERED: fentaNYL (PF) 50 MCG/ML 2 ML AMP ONE (07:38)
[2022-10-04] MEDS ORDERED: MIDAZOLAM 2 MG/2 ML VIAL ONE (07:38)
[2022-10-04] MEDS ORDERED: TRANEXAMIC ACID IN NACL,ISO-OS 1,000 MG/100 ML BAG ONE (07:38)
[2022-10-04] MEDS ORDERED: ceFAZolin 1,000 MG in SODIUM CHLORIDE 0.9% 1,000 ML IRRIGATION ONE (08:13)
[2022-10-04] MEDS ORDERED: LACTATED RINGERS 1,000 ML IV ONE (09:18)
[2022-10-04] MEDS ORDERED: ACETAMINOPHEN TAB 325 MG TAB PO PRN (09:29)
[2022-10-04] MEDS ORDERED: HYDROmorphone 0.5 MG/0.5 ML SYRINGE IVP PRN (09:29)
[2022-10-04] MEDS ORDERED: NALOXONE 0.4 MG/ML 1 ML VIAL IV PRN (09:29)
[2022-10-04] MEDS ORDERED: MAGNESIUM HYDROXIDE 2,400 MG/10 ML CUP PO PRN (09:31)
[2022-10-04] MEDS ORDERED: oxyCODONE-APAP 5-325MG 1 EACH TAB PO PRN (09:34)
--- NOTE | 2022-10-04 09:52 | P.OP ---
Date of Procedure: 10/04/22 Preoperative Diagnosis: Right hip severe osteoarthrosis Postoperative Diagnosis: Same Procedure(s) Performed: Right total hip arthroplastypress-fitlateral approach Implants: Depuy [place]ail size 11/125 collared press-fit femoral stem, 36+1.5 cobalt chrome femoral head, 52 mm [place] acetabular shell with neutral polyethylene liner. Anesthesia: spinal Surgeon: Sunil Meza Horse Race Timer #1: Zackery Shrestha Estimated Blood Loss (ml): 200 Pathology: other (Femoral head) Condition: stable Disposition: PACU Indications for Procedure: The patient is a 67-year-old female presents with progressive right hip pain secondary to osteoarthrosis despite conservative measures. A discussion of the risks and benefits of operative intervention versus continued conservative measures was made with patient. She opted to proceed with surgery. Operative risks to include infection, neurovascular injury, development of blood clots, fracture, leg length discrepancy, possible instability and need for subsequent procedures was discussed. Informed consent was obtained. Operative Findings: As below Description of Procedure: The patient was brought to the operating room, and after induction of spinal anesthesia was placed in a lateral decubitus position. The bony prominences were appropriately padded. The pelvis was stable perpendicular to the floor with a pegboard. The right lower extremity was prepped and draped in normal fashion. A 12 cm incision was then made centered over the greater trochanter extending superiorly to level the ASIS and distally in line with the femoral shaft. The skin and subcutaneous tissues were divided sharply. Electrocautery was used for hemostasis. The fascia blanca and gluteus misty fascia was split in line with the skin incision. The muscle fibers were bluntly dissected proximally. A self-retaining retractor was placed. The anterior and posterior margins of the gluteus medius muscles identified and the anterior two thirds was detached from the greater trochanter with electrocautery. The gluteus minimus tendon was identified and detached in a similar fashion. A wide capsulotomy was performed. The femoral neck fracture was identified in the lower neck cut was made approximately 1 1/2 cm above the level of the lesser trochanter with a sagittal saw at a 45 the shaft. The head was then extracted with a corkscrew. Attention was then paid towards preparing the acetabulum. Anterior and posterior retractors were placed. The remaining capsular labral tissues debrided sharply clearly defining the acetabular margins. Began reaming with a 45 mm reamer taking care to initially medialize, then reaming at 45 of abduction and 20 of anteversion. Sequential reaming is performed up to 51 mm. This was down to bleeding bony surface. A trial 52 mm acetabular shell was inserted at 45 of abduction and 20 of anteversion. This was fully seated. There was good rim fit and stability. A neutral polyethylene liner was then impacted. Care taken to avoid any soft tissue interposition. Attention was then paid towards preparing the proximal femur. A box chisel was used to open the metaphyseal region. A canal finder was used to find the femoral canal. Sequential broaching was performed up to a size 11. This is placed in 15 of anteversion with the leg perpendicular floor judging off the trans-epicondylar axis. There is good rotational stability. A calcar mill was used to fashion the medial calcar. A trial 125 neck along with a 36 mm + 1.5 trial head was placed. The hip was gently reduced. It was taken through range of motion. I felt to be stable in flexion and extension with internal and external rotation. I felt there was adequate adventist of soft tissue tension. The hip was gently dislocated. The trial components removed. Pulsatile lavage was utilized. The final size 11 standard collared femoral stem was inserted again with the leg perpendicular to the floor in 15 of anteversion. Again there was good rotational stability. A 36 mm + 1.5 cobalt chrome femoral head was gently impacted. The hip was gently reduced. Again it was taken through motion and felt to be stable in flexion and extension with internal and external rotation. Pulsatile lavage was again utilized. With the leg in abduction the gluteus minimus and medius tendons reattached to the greater trochanter with #2 Ethibond suture. There was minimal drainage therefore a deep drain was not placed. The fascia blanca and gluteus misty fascia was closed with #2 Ethibond suture. The subcutaneous tissues were reapproximated interrupted 2-0 Vicryl sutures. The skin was reapproximated with 3-0 subcuticular strata fix suture. Skin tape and adhesive was applied. A sterile dressing was applied. The patient was awoken from sedation and transferred to recovery room in good condition. Blood loss was estimated 200 mL. No complications were incurred. Sponge and needle counts were correct in the case. Zackery Shrestha PA assisted during the major composes case to include exposure, implantation, and closure.
[2022-10-04 10:16] LABS: Glucose,Whole Blood 121 mg/dL (70-110)
--- NOTE | 2022-10-04 11:00 | XR ---
EXAMINATION TYPE: XR Hip Limited RT DATE OF EXAM: 10/04/2022 Comparison: None Clinical History: 67-year-old female Status post hip surgery, assess surgical alignment Findings: Image shows placement of right hip total arthroplasty. Acetabular cup and femoral stem components of the prosthesis are well seated without prosthetic fracture. Alignment grossly anatomic. Scattered sof t tissue air related to recent operation. Impression: Uncomplicated postoperative appearance right total hip arthroplasty.
[2022-10-04] MEDS: HYDROmorphone 0.5 MG/0.5 ML SYRINGE IVP PRN ×5 (11:38→23:29)
[2022-10-04] MEDS: CYCLOBENZAPRINE 10 MG TAB PO SCH (14:21)
[2022-10-04 16:14] LABS: Glucose,Whole Blood 275 mg/dL (70-110)
[2022-10-04] MEDS ORDERED: DEXTROSE 50% SYRINGE 50 ML IVP PRN ×2 (16:16)
--- NOTE | 2022-10-04 16:34 | P.CONS ---
History of Present Illness - Reason for Consult Consult date: 10/04/22 - History of Present Illness Patient is a 67-year-old female with a past medical history of insulin-dependent diabetes mellitus, hyperlipidemia, hypertension, hypothyroidism, multiple sclerosis, anxiety and depression who is admitted for right total hip arthroplasty. Patient was seen after surgery. She is currently denying any acute complaints. Review of symptoms:10 ROS reviewed and are negative except as noted in HPI Physical exam General: [Alert and oriented, well nourished, no acute distress]. Eye: [PERRL, EOMI, normal conjunctiva]. HENT: [Normocephalic, clear tympanic membranes, normal hearing, moist oral mucosa, no scleral icterus, no sinus tenderness]. Neck: [Supple, non-tender, no carotid bruits, no JVD, no lymphadenopathy]. Lungs: [Clear to auscultation and percussion, non-labored respiration]. Heart: [Normal rate, regular rhythm, no murmur, gallop or edema]. Abdomen: [Soft, non-tender, non-distended, normal bowel sounds, no masses, obese]. Musculoskeletal: [Decreased range of motion of the right lower extremity, no tenderness or swelling]. Skin: [Skin is warm, dry and pink, no rashes or lesions]. Neurologic: [Awake, alert, and oriented X3, CN II-XII intact]. Psychiatric: [Cooperative, appropriate mood and affect]. Assessment Diabetes mellitus Hyperlipidemia Hypertension Hypothyroidism Myasthenia gravis Anxiety and depression Status post right total hip arthroplasty Plan We'll start patient on Levemir 40 units at bedtime, aspart 11 units before meals with sliding scale insulin Resume her home medications Patient was told that she can take her Adderall if she brings a form home Patient started on Xarelto by primary team for DVT prophylaxis CBC in AM. Thank you for the consult. We'll continue follow along with you Past Medical History Past Medical History: Diabetes Mellitus, Hyperlipidemia, Hypertension, Musculoskeletal Disorder, Neurologic Disorder, Thyroid Disorder Additional Past Medical History / Comment(s): MS-uses cane PRN, seasonal allergies, Restless Leg Syndrome, Degenerative Disc Disease L3-L4-L5. History of Any Multi-Drug Resistant Organisms: None Reported Past Surgical History: Cholecystectomy, Orthopedic Surgery, Tonsillectomy Additional Past Surgical History / Comment(s): D&C, colonoscopy, left knee surgery, Past Anesthesia/Blood Transfusion Reactions: No Reported Reaction Additional Past Anesthesia/Blood Transfusion Reaction / Comm: No hx blood transfusion. Past Psychological History: Anxiety Smoking Status: Former smoker Past Alcohol Use History: None Reported Additional Past Alcohol Use History / Comment(s): QUIT SMOKING IN 1987. Past Drug Use History: None Reported - Past Family History Sister(s) Family Medical History: Cancer, Deep Vein Thrombosis (DVT) Additional Family Medical History / Comment(s): Ovarian cancer. Son(s) Family Medical History: Cancer Medications and Allergies Home Medications Medication Instructions Recorded Confirmed Type Levothyroxine Sodium [Synthroid] 75 mcg PO HS 05/30/14 10/04/22 History [place]-3 Fatty Acids/Fish Oil [Fish 1 cap PO DAILY 05/30/14 10/04/22 History Oil 1,000 mg Softgel] Pregabalin [Lyrica] 100 mg PO HS 05/30/14 10/04/22 History Venlafaxine HCl ER [Effexor XR] 150 mg PO QAM 05/30/14 10/04/22 History Cholecalciferol (Vitamin D3) 10,000 unit PO DAILY 04/06/17 10/04/22 History [Vitamin D3] Dextroamphetamine/Amphetamine 25 mg PO DAILY 04/06/17 10/04/22 History [Adderall Xr] Dulaglutide [Trulicity] 4.5 mg SQ TH 04/06/17 10/04/22 History Pregabalin [Lyrica] 50 mg PO QAM 04/06/17 10/04/22 History HYDROcodone/APAP 10-325MG [[place] 1 tab PO 5XD PRN 02/19/21 10/04/22 History 10-325] Insulin Aspart [NovoLOG Flexpen] 0 units SQ QID 02/19/21 10/04/22 History Insulin Glargine,Hum.rec.anlog 70 units SQ QAM 02/19/21 10/04/22 History [Toujeo Solostar] Pioglitazone [Actos] 30 mg PO DAILY 02/19/21 10/04/22 History Tolterodine ER [Detrol LA] 4 mg PO HS 02/19/21 10/04/22 History Cetirizine HCl [Zyrtec] 10 mg PO HS 11/15/21 10/04/22 History Multivitamins, Thera [Multivitamin 1 tab PO DAILY 11/15/21 10/04/22 History (formulary)] Potassium Chloride [Potassium 10 meq PO DAILY 11/15/21 10/04/22 History Chloride ER] Spironolact/Hydrochlorothiazid 1 each PO DAILY 11/15/21 10/04/22 History [Aldactazide 25-25 MG] Tysabri 1 dose IVPB Q30D 11/15/21 10/04/22 History Loratadine [Claritin] 10 mg PO DAILY 12/28/21 10/04/22 History Pramipexole [Mirapex] 0.25 mg PO HS 06/23/22 10/04/22 History hydrOXYzine pamoate [Vistaril] 25 mg PO DAILY PRN MDD States has 06/23/22 10/04/22 History never had to take. Atorvastatin Calcium 10 mg PO DAILY 09/29/22 10/04/22 History Cyclobenzaprine [Flexeril] 10 mg PO BID 09/29/22 10/04/22 History Allergies Allergy/AdvReac Type Severity Reaction Status Date / Time lisinopril Allergy Rash/Hives Verified 10/04/22 06:18 adhesive tape AdvReac TEARS Verified 10/04/22 06:18 SKIN,paper tape is ok erythromycin base AdvReac Nausea & Verified 10/04/22 06:18 Vomiting Physical Exam Osteopathic Statement: *. No significant issues noted on an osteopathic structural exam other than those noted in the History and Physical/Consult. Vitals: Vital Signs Temp Pulse Resp BP Pulse Ox 10/04/22 14:37 97.9 F 107 H 18 152/84 99 10/04/22 14:11 97.8 F 85 16 144/75 99 10/04/22 13:30 79 16 144/65 99 10/04/22 13:00 80 16 146/66 99 10/04/22 12:45 79 16 150/69 99 10/04/22 12:30 80 16 154/71 99 10/04/22 12:15 82 16 149/67 99 10/04/22 12:00 82 16 148/65 97 10/04/22 11:45 81 16 156/69 97 10/04/22 11:30 82 18 159/70 98 10/04/22 11:15 73 16 163/72 98 10/04/22 11:00 77 16 167/77 98 10/04/22 10:45 77 16 164/77 96 10/04/22 10:30 77 16 165/76 97 10/04/22 10:15 73 16 167/65 97 10/04/22 10:00 74 16 156/73 97 10/04/22 09:47 97.8 F 78 16 142/63 97 10/04/22 07:10 83 14 144/92 100 10/04/22 06:58 95 16 144/67 100 10/04/22 06:15 97 F L 96 16 185/74 100 Intake and Output 10/04/22 10/04/22 10/04/22 06:59 14:59 22:59 Intake Total 1651 Output Total 200 Balance 1451 Intake: IV 1651 Output: Estimated Blood Loss 200 Other: # Voids 1 Weight 108.5 kg 108.5 kg Results Labs: Abnormal Lab Results - Last 24 Hours (Table) 10/04/22 10/04/22 10/04/22 Range/Units 06:45 10:15 16:12 POC Glucose (mg/dL) 135 H 121 H 275 H (70-110) mg/dL
[2022-10-04] MEDS: INSULIN ASPART (NovoLOG) 100 UNIT/ML VIAL SQ SCH ×2 (17:58)
[2022-10-04] MEDS: HYDROcodone/APAP 10-325MG 1 EACH TAB PO PRN (18:00)
[2022-10-04 20:33] LABS: Glucose,Whole Blood 342 mg/dL (70-110)
[2022-10-04] MEDS: OXYBUTYNIN XL 5 MG TAB.ER.24 PO SCH (20:43)
[2022-10-04] MEDS: PREGABALIN 100 MG CAP PO SCH (20:43)
[2022-10-04] MEDS: LEVOTHYROXINE 75 MCG TAB PO SCH (20:43)
[2022-10-04] MEDS: SENNOSIDES-DOCUSATE SODIUM 1 EACH TAB PO SCH (20:43)
[2022-10-04] MEDS: LORATADINE 10 MG TAB PO SCH (20:43)
[2022-10-04] MEDS: PRAMIPEXOLE 0.25 MG TAB PO SCH (20:43)
[2022-10-04] MEDS ORDERED: INSULIN DETEMIR (LEVEMIR) 100 UNIT/ML SYR SQ SCH (21:00)
[2022-10-05] MEDS: HYDROcodone/APAP 10-325MG 1 EACH TAB PO PRN ×4 (00:23→19:46)
[2022-10-05] MEDS: HYDROmorphone 0.5 MG/0.5 ML SYRINGE IVP PRN ×4 (04:02→17:14)
[2022-10-05 05:50] LABS: Glucose,Whole Blood 214 mg/dL (70-110)
[2022-10-05] MEDS: INSULIN ASPART (NovoLOG) 100 UNIT/ML VIAL SQ SCH ×6 (06:18→16:47)
[2022-10-05] MEDS: VENLAFAXINE HCL ER 150 MG CAP PO SCH (07:49)
[2022-10-05] MEDS: SPIRONOLACTONE-HCTZ 25-25MG 1 EACH TAB PO SCH (07:49)
[2022-10-05] MEDS: CYCLOBENZAPRINE 10 MG TAB PO SCH ×3 (07:50→20:39)
[2022-10-05] MEDS: ATORVASTATIN 10 MG TAB PO SCH (07:50)
[2022-10-05] MEDS: RIVAROXABAN 10 MG TAB PO SCH (07:50)
[2022-10-05 09:40] LABS: HCT 35.7 % (37.2-46.3); HGB 11.5 g/dL (12.0-15.0); MCH 27.5 pg (27.0-32.0); MCHC 32.2 g/dL (32.0-37.0); MCV 85.4 fL (80.0-97.0); Mean Platelet Volume 10.8 fL (9.5-12.2); NRBC Per 100 WBC 0.3 /100 WBCS (0.0-0.0); Platelet Count 200 X 10*3/uL (140-440); RBC 4.18 X 10*6/uL (4.10-5.20); RDW 14.8 % (11.5-14.5); WBC 11.54 X 10*3/uL (4.50-10.00)
[2022-10-05] MEDS: DEXTROAMPHETAMINE PO SCH (10:48)
[2022-10-05] MEDS: AMPHETAMINE PO SCH (10:48)
[2022-10-05 11:08] LABS: Glucose,Whole Blood 351 mg/dL (70-110)
[2022-10-05] MEDS: PREGABALIN 50 MG CAP PO SCH (11:08)
[2022-10-05 11:33] LABS: Basophils # (A) 0.03 X 10*3/uL (0.00-0.10); Basophils % (A) 0.3 %; Eosinophils # (A) 0.05 X 10*3/uL (0.04-0.35); Eosinophils % (A) 0.4 %; Immature Grans, Automated 0.8 %; Lymphocytes # (A) 2.15 X 10*3/uL (0.90-5.00); Lymphocytes % (A) 18.6 %; Monocytes # (A) 1.53 X 10*3/uL (0.20-1.00); Monocytes % (A) 13.3 %; Neutrophils # (A) 7.69 X 10*3/uL (1.80-7.70); Neutrophils % (A) 66.6 %
[2022-10-05 11:34] LABS: RBC Morphology NORMAL
--- NOTE | 2022-10-05 11:39 | P.PN ---
Subjective Progress Note Date: 10/05/22 Patient is a 67-year-old female with a past medical history of insulin-dependent diabetes mellitus, hyperlipidemia, hypertension, hypothyroidism, multiple sclerosis, anxiety and depression who is admitted for right total hip arthroplasty. Medicine consulted for medical management Patient was seen today and she denies any acute complaints. She states that she feels better today compared to yesterday. Physical exam General: [Alert and oriented, well nourished, no acute distress]. Eye: [PERRL, EOMI, normal conjunctiva]. HENT: [Normocephalic, clear tympanic membranes, normal hearing, moist oral mucosa, no scleral icterus, no sinus tenderness]. Neck: [Supple, non-tender, no carotid bruits, no JVD, no lymphadenopathy]. Lungs: [Clear to auscultation and percussion, non-labored respiration]. Heart: [Normal rate, regular rhythm, no murmur, gallop or edema]. Abdomen: [Soft, non-tender, non-distended, normal bowel sounds, no masses, obese]. Musculoskeletal: [Decreased range of motion of the right lower extremity, no tenderness or swelling]. Skin: [Skin is warm, dry and pink, no rashes or lesions]. Neurologic: [Awake, alert, and oriented X3, CN II-XII intact]. Psychiatric: [Cooperative, appropriate mood and affect]. Assessment Uncontrolled Diabetes mellitus Acute blood loss anemia as expected Status post right total hip arthroplasty Chronic: Hyperlipidemia Hypertension Hypothyroidism Multiple sclerosis Anxiety and depression Plan Increase Levemir to 70 units at bedtime (which is her home dose), increase aspart to 15 units before meals with sliding scale insulin He will with an outpatient was 13.7. After surgery hemoglobin is 11.2. We'll continue to monitor CBC Resume her home medications Resume Adderall for home Patient started on Xarelto by primary team for DVT prophylaxis CBC in AM. Thank you for the consult. We'll continue follow along with you Objective - Vital Signs Vital signs: Vital Signs Temp 98.1 F 10/05/22 06:45 Pulse 81 10/05/22 06:45 Resp 16 10/05/22 06:45 BP 135/58 10/05/22 06:45 Pulse Ox 99 10/05/22 06:45 FiO2 Intake & Output 05/10/05/22 10/05/22 18:59 06:59 18:59 Intake Total 1651 Output Total 200 Balance 1451 Weight 108.5 kg Intake: IV 1651 Output: Estimated Blood Loss 200 Other: # Voids 1 4 - Labs CBC & Chem 7: 10/05/22 05:49 Labs: Abnormal Lab Results - Last 24 Hours (Table) 10/04/22 10/04/22 10/05/22 Range/Units 16:12 20:30 05:49 WBC 11.54 H (4.50-10.00) X 10*3/uL Hgb 11.5 L (12.0-15.0) g/dL Hct 35.7 L (37.2-46.3) % RDW 14.8 H (11.5-14.5) % Absolute Nucleated RBC 0.03 H (0.00-0.00) X 10*3/uL Immature Gran # 0.09 H (0.00-0.04) X 10*3/uL Monocytes # 1.53 H (0.20-1.00) X 10*3/uL NRBC/100 WBC Diff 0.3 H (0.0-0.0) /100 WBCS POC Glucose (mg/dL) 275 H 342 H (70-110) mg/dL 10/05/22 10/05/22 Range/Units 05:49 11:06 WBC (4.50-10.00) X 10*3/uL Hgb (12.0-15.0) g/dL Hct (37.2-46.3) % RDW (11.5-14.5) % Absolute Nucleated RBC (0.00-0.00) X 10*3/uL Immature Gran # (0.00-0.04) X 10*3/uL Monocytes # (0.20-1.00) X 10*3/uL NRBC/100 WBC Diff (0.0-0.0) /100 WBCS POC Glucose (mg/dL) 214 H 351 H (70-110) mg/dL
--- NOTE | 2022-10-05 14:51 | P.PN ---
Subjective Progress Note Date: 10/05/22 Principal diagnosis: Right hip osteoarthritis Patient was seen at bedside this morning sitting up in the chair. Patient says she is having leg spasms currently. Patient says normally at home she does take [place] 10 mg/325 mg; Flexeril 10 mg twice a day; Lyrica twice a day. Patient says she does have a at home that is very helpful. Patient says she does have a walker for home. Patient says she is hoping stay until tomorrow morning for pain control. Patient says she did work with physical therapy earlier today and did okay with therapy. Patient says she has urinated since surgery. Patient says she has not had bowel movement yet, however, patient says she has been passing gas. Patient denies chest pain, fever, shortness of breath, nausea, vomiting, change in vision, loss of bowel/bladder control. Objective - Vital Signs Vital signs: Vital Signs Temp 97.9 F 10/05/22 13:39 Pulse 88 10/05/22 13:39 Resp 16 10/05/22 13:39 BP 136/99 10/05/22 13:39 Pulse Ox 99 10/05/22 13:39 FiO2 Intake & Output 10/04/22 10/05/22 10/05/22 18:59 06:59 18:59 Intake Total 1651 Output Total 200 Balance 1451 Weight 108.5 kg Intake: IV 1651 Output: Estimated Blood Loss 200 Other: # Voids 1 4 - Exam Right hip: Incision is clean, dry, and intact. The exofin fusion tape is in good condition. There is minimal soft tissue swelling and ecchymosis surrounding the medial and lateral aspects of the incision. Calf is soft, no tenderness with palpation. Plantar flexion, dorsiflexion, EHL, FHL are intact. Sensory exam to light touch throughout the extremity is intact, dorsal pedis pulses 2+. - Labs CBC & Chem 7: 10/05/22 05:49 Labs: Abnormal Lab Results - Last 24 Hours (Table) 10/04/22 10/04/22 10/05/22 Range/Units 16:12 20:30 05:49 WBC 11.54 H (4.50-10.00) X 10*3/uL Hgb 11.5 L (12.0-15.0) g/dL Hct 35.7 L (37.2-46.3) % RDW 14.8 H (11.5-14.5) % Absolute Nucleated RBC 0.03 H (0.00-0.00) X 10*3/uL Immature Gran # 0.09 H (0.00-0.04) X 10*3/uL Monocytes # 1.53 H (0.20-1.00) X 10*3/uL NRBC/100 WBC Diff 0.3 H (0.0-0.0) /100 WBCS POC Glucose (mg/dL) 275 H 342 H (70-110) mg/dL 10/05/22 10/05/22 Range/Units 05:49 11:06 WBC (4.50-10.00) X 10*3/uL Hgb (12.0-15.0) g/dL Hct (37.2-46.3) % RDW (11.5-14.5) % Absolute Nucleated RBC (0.00-0.00) X 10*3/uL Immature Gran # (0.00-0.04) X 10*3/uL Monocytes # (0.20-1.00) X 10*3/uL NRBC/100 WBC Diff (0.0-0.0) /100 WBCS POC Glucose (mg/dL) 214 H 351 H (70-110) mg/dL Assessment and Plan Assessment: 1. Right hip osteoarthritis - Postoperative day 1 status post right total hip arthroplasty Plan: 1. Right hip osteoarthritis - right total hip arthroplasty performed yesterday, 10/04/2022. Patient stable at bedside side this afternoon. We'll plan to keep patient 1 more night for pain control. Plan for discharge home with health services tomorrow. 2. Appreciate medical management 3. Pain management - [place] 10 mg/325 mg; Flexeril 10 mg 3 times a day; Lyrica twice a day 4. DVT prophylaxis - Xarelto 5. GI prophylaxis - senna 6. PT/OT - weightbearing as tolerated with walker as needed 7. Encourage incentive spirometer use 8. Discharge planning - plan for discharge home with health services tomorrow, , 10/06/2022. Time with Patient: Less than 30
--- NOTE | 2022-10-05 15:27 | P.PN ---
Progress Note - Text Progress Note Date: 10/05/22 Review no from orthopedic surgery. Plan is to discharge patient home tomorrow. I completed the medical portion of the med rec. We will sign off. Please don't hesitate to call us with any questions
[2022-10-05 16:13] LABS: Glucose,Whole Blood 189 mg/dL (70-110)
[2022-10-05] MEDS: LACTATED RINGERS 1,000 ML IV SCH (18:03)
[2022-10-05] MEDS: LEVOTHYROXINE 75 MCG TAB PO SCH (19:46)
[2022-10-05] MEDS: PRAMIPEXOLE 0.25 MG TAB PO SCH (19:46)
[2022-10-05] MEDS: LORATADINE 10 MG TAB PO SCH (19:46)
[2022-10-05] MEDS: PREGABALIN 100 MG CAP PO SCH (19:46)
[2022-10-05] MEDS: SENNOSIDES-DOCUSATE SODIUM 1 EACH TAB PO SCH (19:46)
[2022-10-05] MEDS: OXYBUTYNIN XL 5 MG TAB.ER.24 PO SCH (19:46)
[2022-10-05 20:36] LABS: Glucose,Whole Blood 103 mg/dL (70-110)
[2022-10-05] MEDS ORDERED: INSULIN DETEMIR (LEVEMIR) 100 UNIT/ML SYR SQ SCH (21:00)
[2022-10-06] MEDS: HYDROmorphone 0.5 MG/0.5 ML SYRINGE IVP PRN ×3 (00:40→07:49)
[2022-10-06 06:00] LABS: Glucose,Whole Blood 174 mg/dL (70-110)
[2022-10-06] MEDS: INSULIN ASPART (NovoLOG) 100 UNIT/ML VIAL SQ SCH ×4 (06:51→11:55)
[2022-10-06] MEDS: LACTATED RINGERS 1,000 ML IV SCH (06:52)
[2022-10-06] MEDS: CYCLOBENZAPRINE 10 MG TAB PO SCH (07:49)
[2022-10-06] MEDS: AMPHETAMINE PO SCH (07:59)
[2022-10-06] MEDS: DEXTROAMPHETAMINE PO SCH (07:59)
[2022-10-06] MEDS: VENLAFAXINE HCL ER 150 MG CAP PO SCH (08:00)
[2022-10-06] MEDS: ATORVASTATIN 10 MG TAB PO SCH (08:00)
[2022-10-06] MEDS: PREGABALIN 50 MG CAP PO SCH (08:00)
[2022-10-06] MEDS: RIVAROXABAN 10 MG TAB PO SCH (08:00)
[2022-10-06] MEDS: SPIRONOLACTONE-HCTZ 25-25MG 1 EACH TAB PO SCH (08:00)
--- NOTE | 2022-10-06 08:29 | P.DS ---
Providers Date of admission: 10/04/2022 Expected date of discharge: 10/06/22 Attending physician: Sunil Meza Consults: 10/04/22 09:35 Consult Physician Routine Consulting Provider: Lis Mcmahan Consult Reason/Comments: Medical Management s/ [facility] Do you want consulting provider notified?: Yes Primary care physician: Zenon Crocker MD Hospital Course: Date of admission: 10/04/2022 Date of discharge: 10/06/2022 Admission diagnosis: Right hip osteoarthritis Discharge diagnosis: Same Attending physician: Dr. Meza Surgical procedures: Right total hip arthroplasty Brief history: Patient is a 67-year-old female with a history of progressive primary right hip osteoarthritis. At this point patient has failed conservative treatment measures and has opted to proceed with a elective right total hip arthroplasty. Hospital course: Details of patient's surgery can be found in operative report. Patient tolerated the procedure well and was subsequently transported to orthopedic floor. Patient's orthopeidc and medical care was provided daily. Patient had daily laboratory tests performed for evaluation of overall blood counts. Patient had daily physical therapy to include strengthening range of motion as well as education with walker ambulation. Patient was treated with Xarelto for their postoperative DVT prophylaxis during their inpatient stay. Patient was noted to have a relatively uneventful postoperative course. Patient reported satisfactory pain control with oral pain medications by postoperative day 2. Patient showed satisfactory progress with physical therapy. Patient moved steadily through the program and had no difficulty meeting the goals by postoperative day 2. Given patient's otherwise satisfactory course and having met physical therapy goals, plan is to discharge patient home with health services on postoperative day 2. Discharge condition/disposition: Patient will be discharged home with health services in stable condition. Discharge medications: Instructions are given on resumption of patient's normal daily medications per primary care recommendation, in addition patient will be prescribed Vistaril 25 mg; eliquis 2.5 mg BID x 2 weeks. Discharge instructions: 1. Wound care and infection precautions, keep incision dry and covered while showering, no lotions, creams, moisturizers. No soaking, tubs, pools, hottubs. D o not scrub over the incision. 2. Weight-bear as tolerated with walker / cane until follow-up. 3. Ice and elevate when necessary. Do not exceed 20 minutes per hour with ice pack. 4. Utilize compression sleeve until seen at first follow up appointment. 5. Visiting nursing care. 6. Home physical therapy. 7. Pain meds and anticoagulants per prescription. 8. Pain medication has potential to cause constipation. Increase oral fluid and fiber intake. Contact primary care provider if you have not had a bowel movement within 48 hours after discharge 9. No anti-inflammatory medication until discussed at first post operative visit, this including Motrin, Aleve, Mobic, Diclofenac. 10. Follow up in office at 2 weeks postop with Kenroy Huddleston PA-C / Zackery Shrestha PA-C 11. Follow up with your primary care doctor 7-10 days after discharge. 12. Contact [facility] with any questions, . Assessment: Right hip osteoarthritis Procedures: Right total hip arthroplasty Patient Condition at Discharge: Good Plan - Discharge Summary Discharge Rx Participant: Yes New Discharge Prescriptions: New Apixaban [Eliquis] 2.5 mg PO BID #60 tab hydrOXYzine pamoate [Vistaril] 25 mg PO TID #21 capsule Continue Levothyroxine Sodium [Synthroid] 75 mcg PO HS Venlafaxine HCl ER [Effexor XR] 150 mg PO QAM Pregabalin [Lyrica] 100 mg PO HS [place]-3 Fatty Acids/Fish Oil [Fish Oil 1,000 mg Softgel] 1 cap PO DAILY Pregabalin [Lyrica] 50 mg PO QAM Dextroamphetamine/Amphetamine [Adderall Xr] 25 mg PO DAILY Dulaglutide [Trulicity] 4.5 mg SQ TH Cholecalciferol (Vitamin D3) [Vitamin D3] 10,000 unit PO DAILY Insulin Aspart [NovoLOG Flexpen] 0 units SQ QID Pioglitazone [Actos] 30 mg PO DAILY Spironolact/Hydrochlorothiazid [Aldactazide 25-25 MG] 1 each PO DAILY Loratadine [Claritin] 10 mg PO DAILY hydrOXYzine pamoate [Vistaril] 25 mg PO DAILY PRN MDD States has never had to take. PRN Reason: Anxiety Atorvastatin Calcium 10 mg PO DAILY Cyclobenzaprine [Flexeril] 10 mg PO BID Insulin Glargine,Hum.rec.anlog [[place]jeo Solostar] 70 units SQ QAM Tolterodine ER [Detrol LA] 4 mg PO HS Tysabri 1 dose IVPB Q30D Potassium Chloride [Potassium Chloride ER] 10 meq PO DAILY Multivitamins, Thera [Multivitamin (formulary)] 1 tab PO DAILY Pramipexole [Mirapex] 0.25 mg PO HS Discontinued Cetirizine HCl [Zyrtec] 10 mg PO HS No Action HYDROcodone/APAP 10-325MG [[place] 10-325] 1 tab PO 5XD PRN PRN Reason: Pain Discharge Medication List Levothyroxine Sodium [Synthroid] 75 mcg PO HS 05/30/14 [History] [place]-3 Fatty Acids/Fish Oil [Fish Oil 1,000 mg Softgel] 1 cap PO DAILY 05/30/14 [History] Pregabalin [Lyrica] 100 mg PO HS 05/30/14 [History] Venlafaxine HCl ER [Effexor XR] 150 mg PO QAM 05/30/14 [History] Cholecalciferol (Vitamin D3) [Vitamin D3] 10,000 unit PO DAILY 04/06/17 [History] Dextroamphetamine/Amphetamine [Adderall Xr] 25 mg PO DAILY 04/06/17 [History] Dulaglutide [Trulicity] 4.5 mg SQ TH 04/06/17 [History] Pregabalin [Lyrica] 50 mg PO QAM 04/06/17 [History] HYDROcodone/APAP 10-325MG [[place] 10-325] 1 tab PO 5XD PRN 02/19/21 [History] Insulin Aspart [NovoLOG Flexpen] 0 units SQ QID 02/19/21 [History] Insulin Glargine,Hum.rec.anlog [[place]jeo Solostar] 70 units SQ QAM 02/19/21 [History] Pioglitazone [Actos] 30 mg PO DAILY 02/19/21 [History] Tolterodine ER [Detrol LA] 4 mg PO HS 02/19/21 [History] Multivitamins, Thera [Multivitamin (formulary)] 1 tab PO DAILY 11/15/21 [History] Potassium Chloride [Potassium Chloride ER] 10 meq PO DAILY 11/15/21 [History] Spironolact/Hydrochlorothiazid [Aldactazide 25-25 MG] 1 each PO DAILY 11/15/21 [History] Tysabri 1 dose IVPB Q30D 11/15/21 [History] Loratadine [Claritin] 10 mg PO DAILY 12/28/21 [History] Pramipexole [Mirapex] 0.25 mg PO HS 06/23/22 [History] hydrOXYzine pamoate [Vistaril] 25 mg PO DAILY PRN MDD States has never had to take. 06/23/22 [History] Atorvastatin Calcium 10 mg PO DAILY 09/29/22 [History] Cyclobenzaprine [Flexeril] 10 mg PO BID 09/29/22 [History] Apixaban [Eliquis] 2.5 mg PO BID #60 tab 10/06/22 [Rx] hydrOXYzine pamoate [Vistaril] 25 mg PO TID #21 capsule 10/06/22 [Rx] Follow up Appointment(s)/Referral(s): Zackery Shrestha PAC [PHYSICIAN [employer] REPAIRER] - 10/21/22 2:30 pm Zenon Crocker MD [Primary Care Provider] - 1 Week [facility], [NON-STAFF] - 1 Week ([facility] will call you to arrange a visit) Patient Instructions/Handouts: Total Hip Replacement (DC) Activity/Diet/Wound Care/Special Instructions: Orthopedic Discharge Instructions: 1. Wound care and infection precautions, keep incision dry and covered while showering, no lotions, creams, moisturizers. No soaking, pools, hot tubs. Do not scrub over incision. 2. Weight-bear as tolerated with walker / cane until follow-up. 3. Ice and elevate when necessary. Do not exceed 20 minutes per hour with ice pack. 4. Utilize compression sleeve until seen at first follow up appointment. 5. Pain meds and anticoagulants per prescription. 6. Pain medication has potential to cause constipation. Increase oral fluid and fiber intake. Contact primary care provider if you have not had a bowel movement within 48 hours after discharge. 7. No anti-inflammatory medication until discussed at first post operative visit, this including Motrin, Aleve, Mobic, Diclofenac. 8. Follow up in office at 2 weeks postop with Kenroy Huddleston PA-C / Zackery Shrestha PA-C 9. Follow up with your primary care doctor 7-10 days after discharge. 10. Contact [facility] with any questions, . Keep incision clean, dry, intact. While showering, cover fusion tape with Saran wrap. Keep fusion tape on until follow-up appointment in office in 2 weeks Discharge Disposition: HOME WITH HOME HEALTH SERVICES
[2022-10-06 08:47] VITALS: BP 149/52; PULSE 83; RESP 20; TEMP 99.1
--- NOTE | 2022-10-06 10:12 | P.PN ---
Subjective Progress Note Date: 10/06/22 Principal diagnosis: Right hip osteoarthritis Patient was seen at bedside this morning lying in semirecumbent position. Patient says she feels that she is still having leg spasms. Patient feels that some of the Flexeril has not been totally helping spasms. She is wondering if her electrolytes are off. Patient says normally at home she does take [place]; Dilaudid orally; Flexeril; Lyrica. Patient says she is looking forward to going home later today. Patient says she does have a walker and cane at home. Patient says she has urinated since surgery. Patient says she has not had a bowel movement, however, patient says she has been passing gas. Patient denies chest pain, fever, shortness breath, nausea, vomiting, change in vision, loss/bladder control. Objective - Vital Signs Vital signs: Vital Signs Temp 97.5 F L 10/06/22 01:42 Pulse 84 10/06/22 01:42 Resp 18 10/06/22 01:42 BP 135/62 10/06/22 01:42 Pulse Ox 97 10/06/22 01:42 FiO2 Intake & Output 10/05/22 10/06/22 10/06/22 18:59 06:59 18:59 Other: Voiding Method Toilet # Voids 3 2 - Labs CBC & Chem 7: 10/05/22 05:49 Labs: Abnormal Lab Results - Last 24 Hours (Table) 10/05/22 10/05/22 10/05/22 Range/Units 05:49 11:06 16:10 WBC 11.54 H (4.50-10.00) X 10*3/uL Hgb 11.5 L (12.0-15.0) g/dL Hct 35.7 L (37.2-46.3) % RDW 14.8 H (11.5-14.5) % Absolute Nucleated RBC 0.03 H (0.00-0.00) X 10*3/uL Immature Gran # 0.09 H (0.00-0.04) X 10*3/uL Monocytes # 1.53 H (0.20-1.00) X 10*3/uL NRBC/100 WBC Diff 0.3 H (0.0-0.0) /100 WBCS POC Glucose (mg/dL) 351 H 189 H (70-110) mg/dL 10/06/22 Range/Units 05:59 WBC (4.50-10.00) X 10*3/uL Hgb (12.0-15.0) g/dL Hct (37.2-46.3) % RDW (11.5-14.5) % Absolute Nucleated RBC (0.00-0.00) X 10*3/uL Immature Gran # (0.00-0.04) X 10*3/uL Monocytes # (0.20-1.00) X 10*3/uL NRBC/100 WBC Diff (0.0-0.0) /100 WBCS POC Glucose (mg/dL) 174 H (70-110) mg/dL Assessment and Plan Assessment: 1. Right hip osteoarthritis - Postoperative day 2 status post right total hip arthroplasty Plan: 1. Right hip osteoarthritis - right total hip arthroplasty performed yesterday, 10/04/2022. Patient stable at bedside side this morning. Patient does have a walker and cane at home. Discharge home with health services today. 2. Appreciate medical management 3. Pain management - [place] 10 mg/325 mg; Flexeril 10 mg 3 times a day; Lyrica twice a day; going home with Vistaril 25 mg TID 4. DVT prophylaxis - Xarelto in hospital; going home with eliquis 2.5 mg BID x 2 weeks. 5. GI prophylaxis - senna 6. PT/OT - weightbearing as tolerated with walker as needed 7. Encourage incentive spirometer use 8. Discharge planning -discharge home today with health services. Time with Patient: Less than 30
[2022-10-06] MEDS: HYDROcodone/APAP 10-325MG 1 EACH TAB PO PRN (10:48)
[2022-10-06 11:06] LABS: Basophils # (A) 0.05 X 10*3/uL (0.00-0.10); Basophils % (A) 0.5 %; Eosinophils # (A) 0.28 X 10*3/uL (0.04-0.35); HCT 33.3 % (37.2-46.3); HGB 10.6 g/dL (12.0-15.0); Immature Grans, Automated 0.8 %; Lymphocytes # (A) 3.04 X 10*3/uL (0.90-5.00); Lymphocytes % (A) 32.8 %; MCHC 31.8 g/dL (32.0-37.0); MCV 84.7 fL (80.0-97.0); Mean Platelet Volume 10.7 fL (9.5-12.2); Monocytes % (A) 9.7 %; NRBC Per 100 WBC 0 /100 WBCS (0.0-0.0); Neutrophils # (A) 4.92 X 10*3/uL (1.80-7.70); Neutrophils % (A) 53.2 %; Platelet Count 161 X 10*3/uL (140-440); RBC 3.93 X 10*6/uL (4.10-5.20); RDW 14.8 % (11.5-14.5); WBC 9.26 X 10*3/uL (4.50-10.00)
[2022-10-06 11:10] LABS: African American GFR (CKD) 103.2 (60.0-200.0); Anion Gap 11.9 mmol/L (10.00-18.00); Calcium 8.8 mg/dL (8.7-10.3); Carbon Dioxide 28.1 mmol/L (20.0-27.5); Potassium 3.6 mmol/L (3.5-5.5)
[2022-10-06 11:38] LABS: Glucose,Whole Blood 124 mg/dL (70-110)
--- NOTE | 2022-10-06 17:21 | P.ANPRN ---
Procedure Note - Anesthesia - Nerve Block Performed Right Rylan Single Time Out Performed: Yes Date of Procedure: 10/04/22 Location of Patient: PreOp Indication: Acute Post-Operative Pain, Requested by Surgeon Sedation Type: Sedate with meaningful contact maintained Preparation: Sterile Prep Position: Supine Needle Types: Pajunk Needle Gauge: 21 Ultrasound used to visualize needle placement: Yes Ultrasound used to observe medication spread: Yes Blood Aspirated: No Pain Paresthesia on Injection Noted: No Resistance on Injection: Normal Image Stored and Saved: Yes Events: Uneventful and Well Tolerated (Ropivacaine 0.5% 20 mL plus dexamethasone 4mg)
== END 2022-10-06 12:49 | disposition home health service (06) ==
LOC: OR 05:50 → 4SSUR 09:47 → OR 10-05 08:51 → 4SSUR 10-05 08:51 → OR 10-06 12:49 → 4SSUR 10-07 03:55 → UNDOADMOB 10-07 03:55
PROVIDERS: ADMIT Orthopaedic Surgery; ATTEND Orthopaedic Surgery
DX: M16.11 Unilateral primary osteoarthritis, right hip (principal); E11.9 Type 2 diabetes mellitus without complications; E78.5 Hyperlipidemia, unspecified; I10 Essential (primary) hypertension; R29.90 Unspecified symptoms and signs involving the nervous system; E07.9 Disorder of thyroid, unspecified; G35 Multiple sclerosis; G25.81 Restless legs syndrome; J30.2 Other seasonal allergic rhinitis; M51.36 Other intervertebral disc degeneration, lumbar region; Z90.49 Acquired absence of other specified parts of digestive tract; Z98.890 Other specified postprocedural states; F41.9 Anxiety disorder, unspecified; Z87.891 Personal history of nicotine dependence; Z82.49 Family history of ischemic heart disease and other diseases of the circulatory system; Z80.41 Family history of malignant neoplasm of ovary; Z79.85 Long-term (current) use of injectable non-insulin antidiabetic drugs; Z79.890 Hormone replacement therapy; Z79.4 Long term (current) use of insulin; Z79.899 Other long term (current) drug therapy; Z88.1 Allergy status to other antibiotic agents; Z88.8 Allergy status to other drugs, medicaments and biological substances; Z91.09 Other allergy status, other than to drugs and biological substances
CPT/HCPCS: 97116 ×2; 97162; 97535; 97166; 64447; 86900; 86901; 80048; 85025 ×2; 86850; 88300; 73501; 27130; G0378 ×2; C1776; J2250; J1100; J0690 ×3; J2405; J3010; J1170 ×3

== ENCOUNTER → 2023-11-28 | Outpatient (CLI) | payer MEDICARE ==
[2023-11-28 17:31] LABS: ALT 45 U/L (8-44); AST 36 U/L (13-35); Albumin 4.5 g/dL (3.8-4.9); Albumin/Globulin Ratio 2.25 Ratio (1.60-3.17); Alkaline Phosphatase 108 U/L (41-126); BUN/Creat Ratio 21.75 Ratio (12.00-20.00); Blood Urea Nitrogen 17.4 mg/dL (9.0-27.0); Calcium 9.6 mg/dL (8.7-10.3); Carbon Dioxide 28.7 mmol/L (21.6-31.8); Chloride 105 mmol/L (96-109); Chol/HDL Ratio 3.38 Ratio; Glucose 200 mg/dL (70-110); LDL Cholesterol,Calculated 48.7 mg/dL (0.0-131.0); Potassium 4.4 mmol/L (3.5-5.5); Sodium 144 mmol/L (135-145); Total Bilirubin 0.4 mg/dL (0.3-1.2); Total Protein 6.5 g/dL (6.2-8.2)
== END | disposition home or self-care (01) ==
LOC: LABWHC1 09:28
PROVIDERS: ATTEND Family Medicine
DX: I10 Essential (primary) hypertension (principal); E78.5 Hyperlipidemia, unspecified; E11.9 Type 2 diabetes mellitus without complications
CPT/HCPCS: 36415; 80053; 80061; 83036

== ENCOUNTER 2023-12-06 07:53 | Day surgery (SDC) | payer MEDICARE ==
[2023-12-06 08:22] VITALS: TEMP 97.3
[2023-12-06] MEDS: IV FLUID CONTINUATION 1,000 ML IV ONE ×2 (08:28→09:03)
[2023-12-06] MEDS ORDERED: PROPOFOL 10 MG/ML 20 ML VIAL IV ONE (08:30)
[2023-12-06] MEDS: LACTATED RINGERS 1,000 ML IV SCH (08:33)
[2023-12-06 08:34] LABS: Glucose,Whole Blood 126 mg/dL (70-110)
--- NOTE | 2023-12-06 08:37 | P.GSHP ---
History of Present Illness H&P Date: 12/06/23 CHIEF COMPLAINT: Colon screen HISTORY OF PRESENT ILLNESS: The patient is a 68-year-old female who presents for colon screen. Lower endoscopy was offered for further evaluation and management. PAST MEDICAL HISTORY: Please see list. PAST SURGICAL HISTORY: Please see list. MEDICATIONS: Please see list. ALLERGIES: Please see list. SOCIAL HISTORY: No illicit drug use FAMILY HISTORY: No reports of Crohn disease or ulcerative colitis. REVIEW OF ORGAN SYSTEMS: CONSTITUTIONAL: No reports of fevers or chills. PHYSICAL EXAM: VITAL SIGNS: Stable GENERAL: Well-developed pleasant in no acute distress. HEENT: No scleral icterus. Extraocular movements grossly intact. Moist buccal mucosa. NECK: Supple without lymphadenopathy. CHEST: Unlabored respirations. Equal bilateral excursions. CARDIOVASCULAR: Regular rate and rhythm. Distal 2+ pulses. ABDOMEN: Soft, nontender, nondistended. MUSCULOSKELETAL: No clubbing, cyanosis, or edema. ASSESSMENT: 1. Colon screen. PLAN: 1. Recommend proceeding with a lower endoscopy Past Medical History Past Medical History: Diabetes Mellitus, Hyperlipidemia, Hypertension, Musculoskeletal Disorder, Thyroid Disorder Additional Past Medical History / Comment(s): Multiple Sclerosis-occas uses cane, SEASONAL ALLERGIES, RESTLESS LEG SYNDROME, hypothyroidism History of Any Multi-Drug Resistant Organisms: None Reported Past Surgical History: Cholecystectomy, Tonsillectomy Additional Past Surgical History / Comment(s): D&C, COLONOSCOPY, left knee arthroscopy, Rt. BEBETO Past Anesthesia/Blood Transfusion Reactions: No Reported Reaction Additional Past Anesthesia/Blood Transfusion Reaction / Comment(s): no hx blood transfusion Smoking Status: Former smoker - Past Family History Sister(s) Family Medical History: Cancer, Deep Vein Thrombosis (DVT) Additional Family Medical History / Comment(s): Ovarian cancer. Son(s) Family Medical History: Cancer Medications and Allergies Home Medications Medication Instructions Recorded Confirmed Type Levothyroxine Sodium [Synthroid] 75 mcg PO HS 05/30/14 12/06/23 History [place]-3 Fatty Acids/Fish Oil [Fish 1 cap PO DAILY 05/30/14 12/06/23 History Oil 1,000 mg Softgel] Pregabalin [Lyrica] 100 mg PO HS 05/30/14 12/06/23 History Venlafaxine HCl ER [Effexor XR] 150 mg PO QAM 05/30/14 12/06/23 History Cholecalciferol (Vitamin D3) 10,000 unit PO DAILY 04/06/17 12/06/23 History [Vitamin D3] Dulaglutide [Trulicity] 4.5 mg SQ TH 04/06/17 12/06/23 History Pregabalin [Lyrica] 50 mg PO QAM 04/06/17 12/06/23 History HYDROcodone/APAP 10-325MG [[place] 1 tab PO 5XD PRN 02/19/21 12/06/23 History 10-325] Insulin Aspart [NovoLOG Flexpen] 0 units SQ QID 02/19/21 12/06/23 History Insulin Glargine,Hum.rec.anlog 60 units SQ QAM 02/19/21 12/06/23 History [[place] Solostar] Pioglitazone [Actos] 30 mg PO QAM 02/19/21 12/06/23 History Tolterodine ER [Detrol LA] 4 mg PO HS 02/19/21 12/06/23 History Multivitamins, Thera [Multivitamin 1 tab PO DAILY 11/15/21 12/06/23 History (formulary)] Potassium Chloride [Potassium 10 meq PO QAM 11/15/21 12/06/23 History Chloride ER] Spironolact/Hydrochlorothiazid 0.5 each PO QAM 11/15/21 12/06/23 History [Aldactazide 25-25 MG] Tysabri 1 dose IVPB Q30D 11/15/21 12/06/23 History Loratadine [Claritin] 10 mg PO DAILY 12/28/21 12/06/23 History Pramipexole [Mirapex] 0.5 mg PO HS 06/23/22 12/06/23 History Atorvastatin Calcium 10 mg PO HS 09/29/22 12/06/23 History Cetirizine HCl [Zyrtec] 10 mg PO DAILY 12/01/23 12/06/23 History Docusate [Colace] 1 tab PO BID PRN 12/01/23 12/06/23 History Losartan Potassium 25 mg PO HS 12/01/23 12/06/23 History amLODIPine [Norvasc] 10 mg PO DAILY 12/01/23 12/06/23 History hydrOXYzine pamoate [Vistaril] 25 mg PO TID PRN 12/01/23 12/06/23 History metFORMIN HCL [Glucophage] 500 mg PO BID 12/01/23 12/06/23 History modafiniL [Provigil] 100 mg PO QAM 12/01/23 12/06/23 History Allergies Allergy/AdvReac Type Severity Reaction Status Date / Time aspirin Allergy Rash/Hives Verified 12/06/23 08:16 lisinopril Allergy Rash/Hives Verified 12/06/23 08:16 adhesive tape AdvReac TEARS Verified 12/06/23 08:16 SKIN,paper tape is ok erythromycin base AdvReac Nausea & Verified 12/06/23 08:16 Vomiting Surgical - Exam Vital Signs Temp Pulse Resp BP Pulse Ox 97.3 F L 85 18 152/74 98 12/06/23 08:14 12/06/23 08:14 12/06/23 08:14 12/06/23 08:14 12/06/23 08:14 Results - Labs Abnormal Lab Results - Last 24 Hours (Table) 12/06/23 Range/Units 08:27 POC Glucose (mg/dL) 126 H (70-110) mg/dL
[2023-12-06 09:08] VITALS: PULSE 79
--- NOTE | 2023-12-06 09:14 | P.PCN ---
Date of Procedure: 12/06/23 Description of Procedure: PREOPERATIVE DIAGNOSIS: Personal history of colon polyps Colonoscopy screening POSTOPERATIVE DIAGNOSIS: Tubular adenoma hepatic flexure Tubular adenoma transverse colon Sigmoid diverticulosis Internal hemorrhoids, grade 3 OPERATION: Colonoscopy to the ileocecal valve and appendiceal orifice, cecum Colonoscopy with hot snare polypectomy SURGEON: Hailey Wilkinson MD. ANESTHESIA: MAC. INDICATIONS: The patient is an 68-year-old male who presents with personal history of colon polyps. Last colonoscopy 5 years. Benefits and risks were described and informed consent was obtained. DESCRIPTION OF PROCEDURE: The patient had undergone prep. The patient had been brought into the operating room and laid in the left lateral decubitus position. After adequate intravenous sedation, the rectum was examined with 2% lidocaine jelly. The prostate was unremarkable. External hemorrhoids were encountered. The rectal tone was within normal limits. No lesions were palpated in the rectal vault. An Olympus colonoscope was advanced until the cecum, ileocecal valve and appendi ceal orifice were clearly viewed. The prep was fair. Sigmoid diverticulosis, mild, was encountered. Highly redundant sigmoid colon requiring abdominal wall pressure colonic polyps were found and removed. No evidence of focal colitis was found. Retroflexion of the scope demonstrated grade 3 internal hemorrhoids without active bleeding or inflammation. The colon was desufflated. The patient had tolerated the procedure well. Withdrawal time was over 6 minutes. FINDINGS: [place]ick preparation quality scale 2 (1-5) Internal hemorrhoids, grade 3 with recent inflammation and bleeding External hemorrhoids, grade 3. No arteriovenous malformations. Sigmoid diverticulosis Highly redundant sigmoid colon requiring abdominal wall pressure Removal of 2 polyps: - Snare polypectomy hepatic flexure, 5 mm tubulovillous adenoma - Snare polypectomy transverse colon, 9 mm flat villous adenoma No focal colitis. RECOMMENDATIONS: Given severity of tubular adenomas, recommend repeat colonoscopy 3 years, 2026. Plan - Discharge Summary Discharge Rx Participant: Yes New Discharge Prescriptions: Continue Levothyroxine Sodium [Synthroid] 75 mcg PO HS Venlafaxine HCl ER [Effexor XR] 150 mg PO QAM Pregabalin [Lyrica] 100 mg PO HS [place]-3 Fatty Acids/Fish Oil [Fish Oil 1,000 mg Softgel] 1 cap PO DAILY Pregabalin [Lyrica] 50 mg PO QAM Dulaglutide [Trulicity] 4.5 mg SQ TH Cholecalciferol (Vitamin D3) [Vitamin D3] 10,000 unit PO DAILY HYDROcodone/APAP 10-325MG [[place] 10-325] 1 tab PO 5XD PRN PRN Reason: Pain Insulin Aspart [NovoLOG Flexpen] 0 units SQ QID Pioglitazone [Actos] 30 mg PO QAM Spironolact/Hydrochlorothiazid [Aldactazide 25-25 MG] 0.5 each PO QAM Loratadine [Claritin] 10 mg PO DAILY Atorvastatin Calcium 10 mg PO HS Losartan Potassium 25 mg PO HS Docusate [Colace] 1 tab PO BID PRN PRN Reason: Constipation Insulin Glargine,Hum.rec.anlog [[place] Solostar] 60 units SQ QAM Tolterodine ER [Detrol LA] 4 mg PO HS Tysabri 1 dose IVPB Q30D Potassium Chloride [Potassium Chloride ER] 10 meq PO QAM Multivitamins, Thera [Multivitamin (formulary)] 1 tab PO DAILY Pramipexole [Mirapex] 0.5 mg PO HS Cetirizine HCl [Zyrtec] 10 mg PO DAILY amLODIPine [Norvasc] 10 mg PO DAILY modafiniL [Provigil] 100 mg PO QAM metFORMIN HCL [Glucophage] 500 mg PO BID hydrOXYzine pamoate [Vistaril] 25 mg PO TID PRN PRN Reason: Pain Discharge Medication List Levothyroxine Sodium [Synthroid] 75 mcg PO HS 05/30/14 [History] [place]-3 Fatty Acids/Fish Oil [Fish Oil 1,000 mg Softgel] 1 cap PO DAILY 05/30/14 [History] Pregabalin [Lyrica] 100 mg PO HS 05/30/14 [History] Venlafaxine HCl ER [Effexor XR] 150 mg PO QAM 05/30/14 [History] Cholecalciferol (Vitamin D3) [Vitamin D3] 10,000 unit PO DAILY 04/06/17 [History] Dulaglutide [Trulicity] 4.5 mg SQ TH 04/06/17 [History] Pregabalin [Lyrica] 50 mg PO QAM 04/06/17 [History] HYDROcodone/APAP 10-325MG [[place] 10-325] 1 tab PO 5XD PRN 02/19/21 [History] Insulin Aspart [NovoLOG Flexpen] 0 units SQ QID 02/19/21 [History] Insulin Glargine,Hum.rec.anlog [[place] Solostar] 60 units SQ QAM 02/19/21 [History] Pioglitazone [Actos] 30 mg PO QAM 02/19/21 [History] Tolterodine ER [Detrol LA] 4 mg PO HS 02/19/21 [History] Multivitamins, Thera [Multivitamin (formulary)] 1 tab PO DAILY 11/15/21 [History] Potassium Chloride [Potassium Chloride ER] 10 meq PO QAM 11/15/21 [History] Spironolact/Hydrochlorothiazid [Aldactazide 25-25 MG] 0.5 each PO QAM 11/15/21 [History] Tysabri 1 dose IVPB Q30D 11/15/21 [History] Loratadine [Claritin] 10 mg PO DAILY 12/28/21 [History] Pramipexole [Mirapex] 0.5 mg PO HS 06/23/22 [History] Atorvastatin Calcium 10 mg PO HS 09/29/22 [History] Cetirizine HCl [Zyrtec] 10 mg PO DAILY 12/01/23 [History] Docusate [Colace] 1 tab PO BID PRN 12/01/23 [History] Losartan Potassium 25 mg PO HS 12/01/23 [History] amLODIPine [Norvasc] 10 mg PO DAILY 12/01/23 [History] hydrOXYzine pamoate [Vistaril] 25 mg PO TID PRN 12/01/23 [History] metFORMIN HCL [Glucophage] 500 mg PO BID 12/01/23 [History] modafiniL [Provigil] 100 mg PO QAM 12/01/23 [History] Follow up Appointment(s)/Referral(s): Hailey Wilkinson MD [STAFF PHYSICIAN] - As Needed Patient Instructions/Handouts: Colorectal Polyps (GEN), Hemorrhoids (DC), Diverticulosis (GEN) Activity/Diet/Wound Care/Special Instructions: Repeat colonoscopy 3 years, 2026. Recommend start future preps at 12 PM the day before. Discharge Disposition: HOME SELF-CARE
[2023-12-06 09:25] VITALS: BP 146/70; RESP 18
== END 2023-12-06 09:57 | disposition home or self-care (01) ==
LOC: ORWHC2ENDO 07:53
PROVIDERS: ATTEND Surgery Plastic and Reconstructive Surgery
DX: D12.3 Benign neoplasm of transverse colon (principal); E11.9 Type 2 diabetes mellitus without complications; E03.9 Hypothyroidism, unspecified; I10 Essential (primary) hypertension; K64.2 Third degree hemorrhoids; E78.5 Hyperlipidemia, unspecified; G25.81 Restless legs syndrome; F41.9 Anxiety disorder, unspecified; Z87.19 Personal history of other diseases of the digestive system; Z90.49 Acquired absence of other specified parts of digestive tract; Z90.89 Acquired absence of other organs; Z87.891 Personal history of nicotine dependence; Z83.2 Family history of diseases of the blood and blood-forming organs and certain disorders involving the immune mechanism; Z80.41 Family history of malignant neoplasm of ovary; Z79.890 Hormone replacement therapy; Z79.4 Long term (current) use of insulin; Z79.84 Long term (current) use of oral hypoglycemic drugs; Z79.899 Other long term (current) drug therapy; Z79.891 Long term (current) use of opiate analgesic; Z79.85 Long-term (current) use of injectable non-insulin antidiabetic drugs; Z79.51 Long term (current) use of inhaled steroids; Z88.8 Allergy status to other drugs, medicaments and biological substances; Z88.1 Allergy status to other antibiotic agents; Z88.6 Allergy status to analgesic agent
CPT/HCPCS: 88305; 45385; J2704

== ENCOUNTER → 2024-08-08 | Outpatient (CLI) | payer MEDICARE ==
--- NOTE | 2024-08-08 15:39 | BD ---
EXAMINATION TYPE: Axial Bone Density DATE OF EXAM: 08/08/2024 CLINICAL HISTORY: 69 years old Female. ICD-10 CODE: Z780 POSTMENOPAUSAL , Additional History: Height: 232.5 Weight: 64.25 FRAX RISK QUESTIONS: Alcohol (3 or more units per day): no Family History (Parent hip fracture): no Glucocorticoids (More than 3mos): no (Ex: prednisone, prednisolone, methylprednisolone, dexamethasone, and hydrocortisone). History of Fracture in Adulthood: no Secondary Osteoporosis: 1. Type 1 Diabetes: no 2. Hyperthyroidism: no 3. Menopause before 45: no 4. Malnutrition: no 5. Chronic liver disease: no Rheumatoid Arthritis: no Current Tobacco Use: no RISK FACTORS HISTORY OF: Hip Fracture (Right/Left): no Spine Fracture: no History of Wrist Fracture: no Surgery to Spine/Hip(right/left)/Wrist (right/left): RT Hip Replacement 2 years ago Lumbar Spine stimulator at L3-L5 MEDICATIONS: Thyroid Medications: Levothyroxine How Long: past 30 years Osteoporosis Medications: no EXAM MEASUREMENTS: Bone mineral densitometry was performed using the [employer] System. Bone mineral density about the L hip (g/cm2): 1.003 T Score values are as follows: -----L Neck: -0.7 -----L Total: 0.0 Z Score values are as follows: -----L Neck: 0.3 -----L Total: 0.6 Bone mineral density has: decreased -7.2 % since study of: 07/03/2017 Bone mineral density about the L Wrist (g/cm2): 0.575 T Score values are as follows: -----Dist. R+U: -1.0 -----Prox. R+U: -1.0 -----Radius total: -1.6 Z Score values are as follows: -----Dist. R+U: 0.8 -----Prox. R+U: 0.9 -----Radius total: 0.2 Baseline Study FRAX%s: The graph provided illustrates a 7.3% chance for a major osteoporotic fx and a 0.6% chance fo r the hips probability for fx in 10 years time. IMPRESSION: Normal (Values between +1 and -1 indicate normal bone mass). Consider repeating this study in 5 year s or sooner if there is some new clinical indication. NOTE: T-SCORE=SD OF THE YOUNG ADULT MEAN. [facility], , 08/08/2024 3:37 PM
--- NOTE | 2024-08-09 07:24 | MM ---
Reason for Exam: Screening (asymptomatic). Last mammogram was performed 2 year(s) and 3 month(s) ago. Patient History: Menarche at age 11. First Full-Term at age 35. Late child-bearing (after 30). Postmenopausal. Patient has history of breast feeding. Sister had ovarian cancer, age 50. Sister tested for BRCA2 outcome was negative. Sister tested for BRCA1 outcome was negative. Risk Values: Heather 5 year model risk: 2.4%. NCI Lifetime model risk: 6.9%. Prior Study Comparison: 10/30/2019 Bilateral Screening Mammogram, [facility]. 02/23/2021 Bilateral Screening Mammogram, [facility]. 04/28/2022 Bilateral MG 3D screening mammo w/cad, [facility]. Tissue Density: There are scattered areas of fibroglandular density. Findings: Analyzed By CAD. There are increasing regional benign appearing round calcifications in the right breast medial aspect. There are stable small benign-appearing round calcifications in the left breast. There is no suspicious group of microcalcifications or new suspicious mass in either breast. Overall Assessment: Benign, BI-RAD 2 Management: Screening Mammogram of both breasts in 1 year. . Patient should continue monthly self-breast exams. A clinical breast exam by your physician is recommended on an annual basis. This exam should not preclude additional follow-up of suspicious palpable abnormalities. Note on Heather scores and lifetime risk: 1. A Heather score greater than 3% is considered moderate risk. If this is the case, consider specialist referral to assess eligibility for a risk reducing agent. 2. If overall lifetime risk for the development of breast cancer is 20% or higher, the patient may qualify for future screening with alternating mammogram and breast MRI. [facility], , 08/09/2024 7:21 AM. Electronically signed and approved by: Ranjit Pérez M.D.
== END | disposition home or self-care (01) ==
LOC: RADBDWWP 14:44
PROVIDERS: ATTEND Family Medicine
DX: Z12.31 Encounter for screening mammogram for malignant neoplasm of breast (principal); M85.89 Other specified disorders of bone density and structure, multiple sites; R92.323 Mammographic fibroglandular density, bilateral breasts; Z78.0 Asymptomatic menopausal state
CPT/HCPCS: 77063; 77067; 77080